=== PATIENT | male | born 1990 | race Caucasian/White ===

== ENCOUNTER 2018-11-17 15:54 | Emergency (ER) | payer OTHER ==
[2018-11-17 16:01] VITALS: RESP 16
[2018-11-17] MEDS ORDERED: SODIUM CHLORIDE 0.9% 1,000 ML IV STA (16:32)
--- NOTE | 2018-11-17 16:36 | ED ---
General Adult HPI - General Chief complaint: Overdose Stated complaint: Overdose Time Seen by Provider: 11/17/18 16:01 Source: patient Mode of arrival: EMS Limitations: no limitations - History of Present Illness Initial comments: Patient is a 28-year-old male presenting for overdose. The patient states that earlier today, he used methamphetamine as well as her wound. He does not remember the circumstances but thinks that it happened around 2 PM while he was at his girlfriend's house. He was fairly unarousable and they called police because of this. They state that he was given several rounds of Narcan in his nose and then he came back to it. He denies any chest pain, shortness breath, nausea/vomiting/diarrhea currently. - Related Data Home Medications Medication Instructions Recorded Confirmed No Known Home Medications 11/17/18 11/17/18 Allergies Allergy/AdvReac Type Severity Reaction Status Date / Time HONEY MUSTARD Allergy Unknown Uncoded 11/17/18 16:25 Review of Systems ROS Statement: Those systems with pertinent positive or pertinent negative responses have been documented in the HPI. Constitutional: Negative for chills, fatigue and fever. HENT: Negative for congestion. Respiratory: Negative for chest tightness, shortness of breath and wheezing. Negative for cough Cardiovascular: Negative for chest pain and palpitations. Gastrointestinal: Negative for abdominal pain. Negative for abdominal distention , diarrhea, nausea and vomiting. Genitourinary: Negative for dysuria. Musculoskeletal: Negative for back pain, neck pain and neck stiffness. Skin: Negative for color change. Neurological: Negative for dizziness, speech difficulty, weakness and light- headedness. Positive for decreased arousal Psychiatric/Behavioral: Negative for agitation and confusion. Negative for anxiety ROS Other: All systems not noted in ROS Statement are negative. Past Medical History Past Medical History: No Reported History History of Any Multi-Drug Resistant Organisms: None Reported Past Surgical History: No Surgical Hx Reported Past Psychological History: No Psychological Hx Reported Smoking Status: Current every day smoker Past Alcohol Use History: None Reported Past Drug Use History: Heroin General Exam - General Exam Comments Initial Comments: Constitutional: Pt is oriented to person, place, and time. Pt appears well- developed and well-nourished. No distress. HENT: Head: Normocephalic and atraumatic. Eyes: EOM are normal. Neck: Normal range of motion. Neck supple. Cardiovascular: Normal rate, regular rhythm, S1 normal, S2 normal and normal heart sounds. Exam reveals no gallop and no friction rub. No murmur heard. Pulmonary/Chest: Effort normal and breath sounds normal. No tachypnea and no bradypnea. No respiratory distress. No wheezes or rales noted. Abdominal: Soft. Bowel sounds are normal. Pt exhibits no shifting dullness, no distension, no pulsatile liver, no fluid wave, no abdominal bruit and no ascites. There is no tenderness. There is no rigidity, no rebound, no guarding, no tenderness at McBurney's point and negative Schofield's sign. Musculoskeletal: Normal range of motion. Neurological: Pt is alert and oriented to person, place, and time. No cranial nerve deficit. Skin: Skin is warm and dry. No rash noted. Pt is not diaphoretic. No erythema. No pallor. Psychiatric: Pt has a normal mood and affect. Pt behavior is normal. Thought content normal. Limitations: no limitations Course Vital Signs 11/17/18 11/17/18 15:59 19:18 Temperature 97.5 F L 97.8 F Pulse Rate 93 78 Respiratory 16 16 Rate Blood Pressure 131/87 138/70 O2 Sat by Pulse 100 98 Oximetry EKG Findings - EKG Comments: EKG Findings:: EKG shows normal sinus rhythm with a rate of 76 bpm, MN interval 150, QRS 106, QTC 463. Medical Decision Making - Medical Decision Making Laboratory studies showed that there was no significant Y derangements nor was her EKG abnormalities. There are no other toxicologic abnormalities and therefore was thought that the patient could be safely discharged. Explained all labs and diagnostic test results and that we will discharge the patient home and patient is to follow up with PCP in 1-2 days and return to the ED if symptoms worsen. Pt is agreeable to plan. - Lab Data Result diagrams: 11/17/18 16:55 11/17/18 16:55 Lab Results 11/17/18 11/17/18 Range/Units 16:55 16:55 WBC 5.8 (3.8-10.6) k/uL RBC 5.44 (4.30-5.90) m/uL Hgb 16.3 (13.0-17.5) gm/dL Hct 47.2 (39.0-53.0) % MCV 86.7 (80.0-100.0) fL MCH 30.0 (25.0-35.0) pg MCHC 34.6 (31.0-37.0) g/dL RDW 12.3 (11.5-15.5) % Plt Count 115 L (150-450) k/uL Neutrophils % 58 % Lymphocytes % 29 % Monocytes % 8 % Eosinophils % 3 % Basophils % 1 % Neutrophils # 3.3 (1.3-7.7) k/uL Lymphocytes # 1.7 (1.0-4.8) k/uL Monocytes # 0.4 (0-1.0) k/uL Eosinophils # 0.2 (0-0.7) k/uL Basophils # 0.0 (0-0.2) k/uL Sodium 140 (137-145) mmol/L Potassium 4.4 (3.5-5.1) mmol/L Chloride 102 (98-107) mmol/L Carbon Dioxide 30 (22-30) mmol/L Anion Gap 8 mmol/L BUN 14 (9-20) mg/dL Creatinine 0.97 (0.66-1.25) mg/dL Est GFR (CKD-EPI)AfAm >90 (>60 ml/min/1.73 sqM) Est GFR (CKD-EPI)NonAf >90 (>60 ml/min/1.73 sqM) Glucose 117 H (74-99) mg/dL Calcium 8.9 (8.4-10.2) mg/dL Total Bilirubin 0.6 (0.2-1.3) mg/dL AST 67 H (17-59) U/L ALT 133 H (21-72) U/L Alkaline Phosphatase 47 (38-126) U/L Total Protein 7.3 (6.3-8.2) g/dL Albumin 4.5 (3.5-5.0) g/dL Salicylates <1.0 mg/dL Acetaminophen <10.0 ug/mL Serum Alcohol <10 mg/dL Disposition Clinical Impression: Accidental overdose of heroin Disposition: HOME SELF-CARE Condition: Good Is patient prescribed a controlled substance at d/c from ED?: No Referrals: None,Stated [Primary Care Provider] - 1-2 days Time of Disposition: 18:56
[2018-11-17 17:22] LABS: Basophils % (A) 1 %; Eosinophils # (A) 0.2 k/uL (0-0.7); Eosinophils % (A) 3 %; HCT 47.2 % (39.0-53.0); HGB 16.3 gm/dL (13.0-17.5); Lymphocytes # (A) 1.7 k/uL (1.0-4.8); Lymphocytes % (A) 29 %; MCHC 34.6 g/dL (31.0-37.0); MCV 86.7 fL (80.0-100.0); Mean Platelet Volume 8.4; Monocytes # (A) 0.4 k/uL (0-1.0); Monocytes % (A) 8 %; Neutrophils # (A) 3.3 k/uL (1.3-7.7); Neutrophils % (A) 58 %; Platelet Count 115 k/uL (150-450); RBC 5.44 m/uL (4.30-5.90); RDW 12.3 % (11.5-15.5); WBC 5.8 k/uL (3.8-10.6)
[2018-11-17 17:34] LABS: ALT 133 U/L (21-72); AST 67 U/L (17-59); Acetaminophen <10.0 ug/mL; Albumin 4.5 g/dL (3.5-5.0); Alcohol <10 mg/dL; Alkaline Phosphatase 47 U/L (38-126); Anion Gap 8 mmol/L; Blood Urea Nitrogen 14 mg/dL (9-20); Calcium 8.9 mg/dL (8.4-10.2); Carbon Dioxide 30 mmol/L (22-30); Chloride 102 mmol/L (98-107); Glucose 117 mg/dL (74-99); Potassium 4.4 mmol/L (3.5-5.1); Salicylate <1.0 mg/dL; Sodium 140 mmol/L (137-145); Total Bilirubin 0.6 mg/dL (0.2-1.3); Total Protein 7.3 g/dL (6.3-8.2)
[2018-11-17 19:19] VITALS: BP 138/70; PULSE 78; TEMP 97.8
== END 2018-11-17 19:18 | disposition home or self-care (01) ==
LOC: EC 15:54
DX: T40.1X1A Poisoning by heroin, accidental (unintentional), initial encounter (principal); F17.200 Nicotine dependence, unspecified, uncomplicated; Z91.018 Allergy to other foods
CPT/HCPCS: 36415; 93005; 80053; 85025; 83520 ×2; 99284; 96360; 96361; G0480; 80320

== ENCOUNTER 2018-12-02 00:16 | Emergency (ER) | payer OTHER ==
[2018-12-02 00:23] VITALS: TEMP 98.3
--- NOTE | 2018-12-02 00:25 | ED ---
General Adult HPI - General Chief complaint: Overdose Stated complaint: overdose Source: patient, EMS Mode of arrival: wheelchair Limitations: no limitations - Related Data Home Medications Medication Instructions Recorded Confirmed No Known Home Medications 11/17/18 11/17/18 Allergies Allergy/AdvReac Type Severity Reaction Status Date / Time HONEY MUSTARD Allergy Unknown Uncoded 11/17/18 16:25 Review of Systems ROS Statement: Those systems with pertinent positive or pertinent negative responses have been documented in the HPI. ROS Other: All systems not noted in ROS Statement are negative. Past Medical History Past Medical History: No Reported History Additional Past Medical History / Comment(s): HEPATITIS C History of Any Multi-Drug Resistant Organisms: None Reported Past Surgical History: No Surgical Hx Reported Past Psychological History: No Psychological Hx Reported Smoking Status: Current every day smoker Past Alcohol Use History: None Reported Past Drug Use History: Heroin General Exam Limitations: no limitations Course Vital Signs 12/02/18 12/02/18 12/02/18 00:18 00:19 00:20 Temperature 98.3 F Pulse Rate 125 H 130 H Respiratory 16 Rate Blood Pressure 110/65 110/65 O2 Sat by Pulse 95 97 Oximetry 12/02/18 12/02/18 12/02/18 00:40 01:00 01:10 Temperature Pulse Rate 118 H 114 H 114 H Respiratory 17 Rate Blood Pressure 114/72 114/72 107/80 O2 Sat by Pulse 100 100 Oximetry 12/02/18 12/02/18 01:30 01:40 Temperature Pulse Rate 104 H 107 H Respiratory Rate Blood Pressure 107/80 112/80 O2 Sat by Pulse Oximetry Medical Decision Making - Medical Decision Making Dictation was produced using [employer] dictation software. please excuse any grammatical, word or spelling errors. Chief Complaint:-year-old male presents after drug use. History of Present Illness: he is 28-year-old male brought in by EMS. EMS was called by patient's significant other for possible drug use. Patient states that earlier today he sniffed opiates.. Patient denies any complaints at this time. His girlfriend hemoglobin grocery store saw him pain on the stairs. Patient has history of illicit drug abuse. Patient does also use drugs. EMS reports that he was maintaining his own airway. No Narcan was given. The ROS documented in this emergency department record has been reviewed and confirmed by me. Those systems with pertinent positive or negative responses have been documented in the HPI. All other systems are other negative and/or noncontributory. PHYSICAL EXAM: General Impression: Alert and oriented x3, not in acute distress HEENT: Normocephalic atraumatic, extra-ocular movements intact, pupils equal and reactive to light bilaterally, mucous membranes moist. Cardiovascular: Heart regular rate and rhythm, S1&S2 audible, no murmurs, rubs or gallops Chest: Lungs clear to auscultation bilaterally, no rhonchi, no wheeze, no rales Abdomen: Bowel sounds present, abdomen soft, non-tender, non-distended, no organomegaly Musculoskeletal: Pulses present and equal in all extremities, no peripheral edema Motor: Power 5/5 bilaterally, no focal deficits noted Neurological: CN II-XII grossly intact, no focal motor or sensory deficits noted Skin: Intact with no visualized rashes, positive skin tracts extremities Psych: Normal affect and mood ED course: 28-year-old male presents after opiate overdose. Vital signs upon arrival shows heart rate of 125, rest of vital signs within acceptable limits. Patient is in no acute distress. Patient not having any signs of respiratory failure. Patient is alert and oriented 4. Patient observed in emergency department for several hours with no acute issues. Patient ambulatory and tolerating by mouth without complications. Repeat vital signs are obtained and found to be within acceptable limits. Patient clear for discharge. Disposition Clinical Impression: Drug overdose Disposition: HOME SELF-CARE Condition: Good Instructions: Safe Use of Narcotics (ED) Is patient prescribed a controlled substance at d/c from ED?: No Referrals: None,Stated [Primary Care Provider] - 1-2 days Russell Mccloud MD [REFERRING] - 1-2 days Time of Disposition: 01:47
[2018-12-02 01:45] VITALS: BP 112/80
[2018-12-02 01:52] VITALS: PULSE 98; RESP 19
== END 2018-12-02 01:53 | disposition home or self-care (01) ==
LOC: EC 00:16
DX: T40.601A Poisoning by unspecified narcotics, accidental (unintentional), initial encounter (principal); F17.200 Nicotine dependence, unspecified, uncomplicated; Z91.018 Allergy to other foods
CPT/HCPCS: 99284

== ENCOUNTER 2024-02-13 09:58 | Inpatient (IN) | payer OTHER ==
--- NOTE | 2024-02-13 10:34 | ED ---
SOB HPI - General Chief Complaint: Shortness of Breath Stated Complaint: ERICK,R shoulder pain Time Seen by Provider: 02/13/24 10:09 Source: patient, RN notes reviewed Mode of arrival: ambulatory Limitations: no limitations - History of Present Illness Initial Comments: This is a 33-year-old male who presents to the emergency department for coughing, congestion, and shortness of breath. Symptoms started about a week ago. He went to urgent care over the weekend and was diagnosed with bronchitis. He was started on prednisone and azithromycin. He has since finished the azithromycin and has 1 day left of the steroid. However, he has not gotten any better. Reports a significant amount of sputum production. He is also having pain in the right side of his chest, neck, and middle of his back, especially when he tries to take a deep breath. Denies any sick contacts. States that he feels very weak and fatigued. Denies any history of asthma. MD Complaint: shortness of breath, cough - Related Data Home Medications Medication Instructions Recorded Confirmed Buprenorphine/Naloxone 8Mg/2Mg 0.0625 film SL DAILY 02/13/24 02/13/24 [Suboxone 8-2Mg Film] Ibuprofen [Motrin] 600 mg PO Q8HR PRN 02/13/24 02/13/24 methylPREDNISolone Dose Pack See Taper PO DIRECTED 02/13/24 02/13/24 [Medrol Dose Pack] Allergies Allergy/AdvReac Type Severity Reaction Status Date / Time HONEY MUSTARD Allergy Swelling Uncoded 02/13/24 11:27 Review of Systems ROS Statement: Those systems with pertinent positive or pertinent negative responses have been documented in the HPI. ROS Other: All systems not noted in ROS Statement are negative. Past Medical History Past Medical History: No Reported History Additional Past Medical History / Comment(s): HEPATITIS C History of Any Multi-Drug Resistant Organisms: None Reported Past Surgical History: No Surgical Hx Reported Past Psychological History: No Psychological Hx Reported Past Alcohol Use History: None Reported Past Drug Use History: Heroin General Exam Limitations: no limitations General appearance: alert, in no apparent distress Head exam: Present: atraumatic, normocephalic, normal inspection Respiratory exam: Present: normal lung sounds bilaterally. Absent: respiratory distress, wheezes, rales, rhonchi, stridor Cardiovascular Exam: Present: regular rate, normal rhythm, normal heart sounds. Absent: systolic murmur, diastolic murmur, rubs, gallop, clicks Neurological exam: Present: alert, oriented X3, CN II-XII intact Psychiatric exam: Present: normal affect, normal mood Skin exam: Present: warm, dry, intact, normal color. Absent: rash Course Vital Signs 02/13/24 02/13/24 02/13/24 10:03 10:15 13:13 Temperature 98.8 F Pulse Rate 108 H 102 H 75 Respiratory 26 H 22 Rate Blood Pressure 113/73 135/79 O2 Sat by Pulse 98 94 L Oximetry 02/13/24 02/13/24 02/13/24 13:21 13:28 15:58 Temperature Pulse Rate 79 79 90 Respiratory 22 22 Rate Blood Pressure 126/75 116/77 O2 Sat by Pulse 94 L 98 Oximetry 02/13/24 18:09 Temperature 99.2 F Pulse Rate 70 Respiratory 20 Rate Blood Pressure 110/56 O2 Sat by Pulse 96 Oximetry Medical Decision Making - Medical Decision Making This is a 33 year old male who presents to the emergency department for coughing and shortness of breath. Was pt. sent in by a medical professional or institution? @ -No Did you speak to anyone other than the patient for history? @ -No Did you review nursing and triage notes? @ -Yes, and I agree, it is accurate with regards to the patient's symptoms. Were old charts reviewed? @ -No Differential Diagnosis? @ -Differential Dyspnea: Coronary syndrome, arrhythmia, tamponade, asthma, COPD, pulmonary embolism, pneumonia, pneumothorax, pulmonary effusion, anaphylaxis, diabetic ketoacidosis, flailed chest, pulmonary contusion, diaphragmatic rupture, anemia, neuromuscular, this is not meant to be an all-inclusive list. EKG interpreted by me (3pts min.)? @ -EKG interpreted by me demonstrating the following: Sinus rhythm. Ventricular rate 90 bpm, [place] interval 154 ms, QRS duration 105 ms, QTc 389 ms. X-rays interpreted by me (1pt min.)? @ -Chest x-ray obtained. My interpretation identifies perihilar infiltrates. CT interpreted by me (1pt min.)? @ -CTA of the chest obtained. My interpretation identifies no evidence of a pulmonary embolus. U/S interpreted by me (1pt. min.)? @ -Not obtained What testing was considered but not performed? (CT, X-rays, U/S, labs)? Why? @ -None What meds were considered but not given? Why? @ -None Did you discuss the management of the patient with other professionals? @ -Yes, Dr. Key, who accepts the patient for admission. Did you reconcile home meds? @ -No Was smoking cessation discussed for >3mins.? @ -I discussed smoking cessation for greater than 3 minutes. The risk of smoking were discussed with the patient including but not limited to risks of cancer, stroke, coronary artery disease and COPD. Also discussed with patient were multiple methods of quitting smoking. Lastly we discussed the financial cost of smoking. Was critical care preformed (if so, how long)? @ -No Were there social determinants of health that impacted care today? How? (Homelessness, low income, unemployed, alcoholism, drug addiction, transportation, low edu. Level, literacy, decrease access to med. care, nursing home, rehab)? @ -No Was there de-escalation of care discussed even if they declined? (Discuss DNR or withdrawal of care, Hospice)? @ -No What co-morbidities impacted this encounter? (DM, HTN, Smoking, COPD, CAD, Cancer, CVA, Hep., AIDS, mental health diagnosis, sleep apnea, morbid obesity)? @ -Smoking Was patient admitted / discharged? @ -Admitted. Lab work demonstrates leukocytosis with a white blood cell count of 13.2. D-dimer elevated at 0.94 and CRP elevated at 14.1. Patient positive for influenza B. Chest x-ray demonstrates patchy perihilar infiltrates. Given the elevated D-dimer and patient's symptoms, CTA of the chest was obtained. No evidence of a pulmonary embolus was identified. However, he did have masslike areas of consolidation bilaterally, some of which demonstrate central lucency. They advised correlation for septic emboli, pulmonary abscess, and/or necrotic pneumonia. Findings reviewed with the patient. He was initially going to leave [facility], as he does not have any health insurance. He was later agreeable to admission. Patient started on pneumonia protocol with ceftriaxone and azit hromycin as well as Tamiflu for influenza B. Blood and sputum cultures obtained. Consult placed for pulmonology. Consult placed for social work as well due to patient needing help with finding health insurance. Undiagnosed new problem with uncertain prognosis? @ -None Drug Therapy requiring intensive monitoring for toxicity (Heparin, Nitro, Insulin, Cardizem)? @ -None Were any procedures done? @ -None Diagnosis/symptom? @ -Pneumonia, influenza B Acute, or Chronic, or Acute on Chronic? @ -Acute Uncomplicated (without systemic symptoms) or Complicated (systemic symptoms)? @ -Complicated Side effects of treatment? @ -None Exacerbation, Progression, or Severe Exacerbation] @ -Not applicable Poses a threat to life or bodily function? @ -Yes This case was discussed in detail with the attending ED physician, Dr. Torres. Presentation, findings, and treatment plan discussed in detail as well. - Lab Data Result diagrams: 02/13/24 10:46 02/13/24 10:46 Lab Results 02/13/24 02/13/24 02/13/24 Range/Units 10:46 10:46 10:46 WBC 13.2 H (3.8-10.6) k/uL RBC 4.98 (4.30-5.90) m/uL Hgb 14.5 (13.0-17.5) gm/dL Hct 42.4 (39.0-53.0) % MCV 85.3 (80.0-100.0) fL MCH 29.1 (25.0-35.0) pg MCHC 34.2 (31.0-37.0) g/dL RDW 12.0 (11.5-15.5) % Plt Count 193 (150-450) k/uL MPV 9.7 Neutrophils % 79 % Lymphocytes % 6 % Monocytes % 12 % Eosinophils % 0 % Basophils % 1 % Neutrophils # 10.5 H (1.3-7.7) k/uL Lymphocytes # 0.9 L (1.0-4.8) k/uL Monocytes # 1.5 H (0-1.0) k/uL Eosinophils # 0.0 (0-0.7) k/uL Basophils # 0.1 (0-0.2) k/uL PT 10.4 (10.0-12.5) sec INR 0.9 (<1.2) APTT 26.2 (22.0-30.0) sec D-Dimer 0.94 H (<0.60) mg/L FEU Sodium 131 L (137-145) mmol/L Potassium 4.0 (3.5-5.1) mmol/L Chloride 97 L (98-107) mmol/L Carbon Dioxide 26 (22-30) mmol/L Anion Gap 8 mmol/L BUN 8 L (9-20) mg/dL Creatinine 0.51 L (0.66-1.25) mg/dL Est GFR (CKD-EPI)AfAm >90 (>60 ml/min/1.73 sqM) Est GFR (CKD-EPI)NonAf >90 (>60 ml/min/1.73 sqM) Glucose 99 (74-99) mg/dL Plasma Lactic Acid Arnie (0.7-2.0) mmol/L Calcium 8.9 (8.4-10.2) mg/dL Total Bilirubin 0.6 (0.2-1.3) mg/dL AST 42 (17-59) U/L ALT 74 H (4-49) U/L Alkaline Phosphatase 72 (38-126) U/L Troponin I (0.000-0.034) ng/mL C-Reactive Protein (<1.0) mg/dL Total Protein 6.3 (6.3-8.2) g/dL Albumin 3.3 L (3.5-5.0) g/dL Procalcitonin (0.02-0.09) ng/mL Influenza Type A (PCR) (Not Detectd) Influenza Type B (PCR) (Not Detectd) RSV (PCR) (Not Detectd) SARS-CoV-2 (PCR) (Not Detectd) 02/13/24 02/13/24 02/13/24 Range/Units 10:46 10:46 10:46 WBC (3.8-10.6) k/uL RBC (4.30-5.90) m/uL Hgb (13.0-17.5) gm/dL Hct (39.0-53.0) % MCV (80.0-100.0) fL MCH (25.0-35.0) pg MCHC (31.0-37.0) g/dL RDW (11.5-15.5) % Plt Count (150-450) k/uL MPV Neutrophils % % Lymphocytes % % Monocytes % % Eosinophils % % Basophils % % Neutrophils # (1.3-7.7) k/uL Lymphocytes # (1.0-4.8) k/uL Monocytes # (0-1.0) k/uL Eosinophils # (0-0.7) k/uL Basophils # (0-0.2) k/uL PT (10.0-12.5) sec INR (<1.2) APTT (22.0-30.0) sec D-Dimer (<0.60) mg/L FEU Sodium (137-145) mmol/L Potassium (3.5-5.1) mmol/L Chloride (98-107) mmol/L Carbon Dioxide (22-30) mmol/L Anion Gap mmol/L BUN (9-20) mg/dL Creatinine (0.66-1.25) mg/dL Est GFR (CKD-EPI)AfAm (>60 ml/min/1.73 sqM) Est GFR (CKD-EPI)NonAf (>60 ml/min/1.73 sqM) Glucose (74-99) mg/dL Plasma Lactic Acid Arnie 1.1 (0.7-2.0) mmol/L Calcium (8.4-10.2) mg/dL Total Bilirubin (0.2-1.3) mg/dL AST (17-59) U/L ALT (4-49) U/L Alkaline Phosphatase (38-126) U/L Troponin I <0.012 (0.000-0.034) ng/mL C-Reactive Protein (<1.0) mg/dL Total Protein (6.3-8.2) g/dL Albumin (3.5-5.0) g/dL Procalcitonin (0.02-0.09) ng/mL Influenza Type A (PCR) Not Detected (Not Detectd) Influenza Type B (PCR) Detected A (Not Detectd) RSV (PCR) Not Detected (Not Detectd) SARS-CoV-2 (PCR) Not Detected (Not Detectd) 02/13/24 02/13/24 Range/Units 10:46 10:46 WBC (3.8-10.6) k/uL RBC (4.30-5.90) m/uL Hgb (13.0-17.5) gm/dL Hct (39.0-53.0) % MCV (80.0-100.0) fL MCH (25.0-35.0) pg MCHC (31.0-37.0) g/dL RDW (11.5-15.5) % Plt Count (150-450) k/uL MPV Neutrophils % % Lymphocytes % % Monocytes % % Eosinophils % % Basophils % % Neutrophils # (1.3-7.7) k/uL Lymphocytes # (1.0-4.8) k/uL Monocytes # (0-1.0) k/uL Eosinophils # (0-0.7) k/uL Basophils # (0-0.2) k/uL PT (10.0-12.5) sec INR (<1.2) APTT (22.0-30.0) sec D-Dimer (<0.60) mg/L FEU Sodium (137-145) mmol/L Potassium (3.5-5.1) mmol/L Chloride (98-107) mmol/L Carbon Dioxide (22-30) mmol/L Anion Gap mmol/L BUN (9-20) mg/dL Creatinine (0.66-1.25) mg/dL Est GFR (CKD-EPI)AfAm (>60 ml/min/1.73 sqM) Est GFR (CKD-EPI)NonAf (>60 ml/min/1.73 sqM) Glucose (74-99) mg/dL Plasma Lactic Acid Arnie (0.7-2.0) mmol/L Calcium (8.4-10.2) mg/dL Total Bilirubin (0.2-1.3) mg/dL AST (17-59) U/L ALT (4-49) U/L Alkaline Phosphatase (38-126) U/L Troponin I (0.000-0.034) ng/mL C-Reactive Protein 14.1 H (<1.0) mg/dL Total Protein (6.3-8.2) g/dL Albumin (3.5-5.0) g/dL Procalcitonin 0.28 H (0.02-0.09) ng/mL Influenza Type A (PCR) (Not Detectd) Influenza Type B (PCR) (Not Detectd) RSV (PCR) (Not Detectd) SARS-CoV-2 (PCR) (Not Detectd) - Radiology Data Radiology results: report reviewed, image reviewed Disposition Clinical Impression: Influenza B, Pneumonia, Nicotine dependence Disposition: ADMITTED IP TO THIS HOSP Is patient prescribed a controlled substance at d/c from ED?: No Time of Disposition: 13:32
[2024-02-13] MEDS: SODIUM CHLORIDE 0.9% 1,000 ML IV STA (10:44)
--- NOTE | 2024-02-13 11:05 | XR ---
EXAMINATION TYPE: XR chest 2V DATE OF EXAM: 02/13/2024 COMPARISON: NONE HISTORY: Chest pain TECHNIQUE: Frontal and lateral views of the chest are obtained. FINDINGS: Patchy perihilar infiltrates compatible with pneumonia. No evidence for pneumothorax. No pleural effusion. The cardiac silhouette size is within normal limits. The osseous structures are grossly intact. IMPRESSION: 1. Patchy perihilar infiltrates compatible with pneumonia.
[2024-02-13 11:09] LABS: INR 0.9 (<1.2); Partial Thromboplastin Time 26.2 sec (22.0-30.0); Prothrombin Time 10.4 sec (10.0-12.5)
[2024-02-13 11:11] LABS: ALT 74 U/L (4-49); AST 42 U/L (17-59); African American GFR (CKD) >90 (>60 ml/min/1.73 sqM); Albumin 3.3 g/dL (3.5-5.0); Alkaline Phosphatase 72 U/L (38-126); Anion Gap 8 mmol/L; Blood Urea Nitrogen 8 mg/dL (9-20); Calcium 8.9 mg/dL (8.4-10.2); Carbon Dioxide 26 mmol/L (22-30); Chloride 97 mmol/L (98-107); Glucose 99 mg/dL (74-99); Non-African American GFR(CKD) >90 (>60 ml/min/1.73 sqM); Sodium 131 mmol/L (137-145); Total Bilirubin 0.6 mg/dL (0.2-1.3); Total Protein 6.3 g/dL (6.3-8.2)
[2024-02-13 11:15] LABS: Basophils # (A) 0.1 k/uL (0-0.2); Basophils % (A) 1 %; Eosinophils % (A) 0 %; HCT 42.4 % (39.0-53.0); HGB 14.5 gm/dL (13.0-17.5); Lymphocytes # (A) 0.9 k/uL (1.0-4.8); Lymphocytes % (A) 6 %; MCH 29.1 pg (25.0-35.0); MCHC 34.2 g/dL (31.0-37.0); MCV 85.3 fL (80.0-100.0); Mean Platelet Volume 9.7; Monocytes # (A) 1.5 k/uL (0-1.0); Monocytes % (A) 12 %; Neutrophils # (A) 10.5 k/uL (1.3-7.7); Neutrophils % (A) 79 %; Platelet Count 193 k/uL (150-450); RBC 4.98 m/uL (4.30-5.90); WBC 13.2 k/uL (3.8-10.6)
[2024-02-13] MEDS: BENZONATATE 100 MG CAP PO STA (11:27)
--- NOTE | 2024-02-13 12:55 | CT ---
EXAMINATION TYPE: CT chest angio for PE DATE OF EXAM: 02/13/2024 COMPARISON: None HISTORY: ERICK, elevated d-dimer CT DLP: 334.7 mGycm CONTRAST: CT chest with contrast and 3D reconstruction with MIP imaging is performed with IV Contrast, patient injected with 100 mL of Isovue 370. Contrast-enhanced CT of the chest was performed through the course of the pulmonary arteries with shawna g and mediastinal window settings submitted. 3D reconstruction with MIP imaging was also performed. PULMONARY ARTERIES: The pulmonary arteries and their major tributaries are patent. I do not see ana dence for sizable filling defect to suggest pulmonary embolic process. LUNGS: There are masslike areas of consolidation bilaterally some of which demonstrate central lucenc y. Correlate for septic emboli, pulmonary abscesses and/or necrotic pneumonia. MEDIASTINUM: Thoracic aorta is of normal caliber. Subcarinal adenopathy measuring 1.7 cm. the heart is not enlarged. No evidence for mediastinal mass HILAR STRUCTURES: No evidence for mass. Prominent perihilar peribronchial lymph nodes bilaterally. UPPER ABDOMEN: No significant abnormality is seen. IMPRESSION: 1. No evidence for Pulmonary embolism at this time. 2.There are masslike areas of consolidation bilaterally some of which demonstrate central lucency. Co rrelate for septic emboli, pulmonary abscesses and/or necrotic pneumonia.
[2024-02-13] MEDS: IPRATROPIUM-ALBUTEROL 3 ML NEB INHALATION STA (13:08)
[2024-02-13] MEDS: guaiFENesin-DM 100-10MG/5ML 10 ML CUP PO STA (13:26)
[2024-02-13] MEDS ORDERED: PNEUMONIA PROTOCOL UTILIZED 1 EACH MISC PO PRN (13:42)
[2024-02-13] MEDS ORDERED: MORPHINE SULFATE 4 MG/ML SYRINGE IV PRN (14:12)
[2024-02-13] MEDS ORDERED: ONDANSETRON 4 MG/2 ML VIAL IVP PRN (14:12)
[2024-02-13] MEDS ORDERED: NALOXONE 0.4 MG/ML 1 ML VIAL IV PRN (14:12)
[2024-02-13] MEDS: SODIUM CHLORIDE 0.9% 1,000 ML IV SCH (14:52)
[2024-02-13] MEDS ORDERED: IBUPROFEN 600 MG TAB PO PRN (15:19)
[2024-02-13] MEDS: guaiFENesin-Coden 100-10MG/5ML 10 ML CUP PO STA (15:25)
[2024-02-13] MEDS: AZITHROMYCIN 500 MG in SODIUM CHLORIDE 0.9% 250 ML IVPB STA (15:54)
[2024-02-13] MEDS: OSELTAMIVIR 75 MG CAP PO SCH (16:07)
--- NOTE | 2024-02-13 20:56 | HP ---
HISTORY AND PHYSICAL CHIEF COMPLAINT: Cough, congestion, fever and chills. HISTORY OF PRESENT ILLNESS: This is a first known admission for this 33-year-old white male. He became ill with upper respiratory infection and cough. He went to Urgent Care, where he was given Z- Clemente and steroids. He got worse. Came to emergency room on the day [place] admission[place] [id number] and a chest x-ray demonstrated numerous, dense patches of pneumonitis bilaterally. He has not coughed up any blood. He has had no chest pain. REVIEW OF SYSTEMS: Otherwise unremarkable. Past medical history, family history, personal and social histories are unremarkable. He does take Suboxone. PHYSICAL EXAMINATION: VITAL SIGNS: Normal. CHEST: Demonstrates very poor breath sounds and expiratory wheezing and very productive cough of yellowish and brownish sputum. CARDIAC: Normal. ABDOMEN: Soft, nontender. EXTREMITIES: Normal. IMPRESSION: Bilateral bronchopneumonia. PLAN: 1. Bedrest. 2. IV fluids. 3. Nasal O2. 4. Updrafts. 5. Antibiotics. 6. Pulmonology consult. MMODL / IJN: [id number] /
[2024-02-13] MEDS: guaiFENesin-DM 600/30MG 1 EACH TAB.ER.12H PO SCH (21:33)
[2024-02-13] MEDS ORDERED: VANCOMYCIN IV PER PHARMACY 1 EACH MISC MISCELLANE PRN (22:25)
--- NOTE | 2024-02-13 22:44 | PN ---
PROGRESS NOTE DATE OF SERVICE: 02/13/2024 HISTORY OF PRESENT ILLNESS: This gentleman is quite short of breath and he is coughing up purulent sputum. White count [id number]. PHYSICAL EXAMINATION: CHEST: Breath sounds are poor with scattered rales, rhonchi, and decreased breath sounds. CARDIAC: Normal. IMPRESSION: Bilateral bronchopneumonia. PLAN: Continue with IV and normal steroids, antibiotics and updrafts. MMODL / IJN: [id number] /
[2024-02-13] MEDS: VANCOMYCIN 1,500 MG in SODIUM CHLORIDE 0.9% 500 ML 500 ML IVPB ONE (22:49)
--- NOTE | 2024-02-14 02:19 | P.CNPUL ---
History of Present Illness Consult date: 02/14/24 Requesting physician: Cally Briones Reason for consult: other (Pneumonia, influenza B) Chief complaint: Shortness of breath, cough, fever History of present illness: Patient is a 33-year-old white male with past medical history significant for IV drug abuse, previous MRSA infection, recent incarceration, hepatitis C. Patient was recently let out of custodial May,. 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 He was recently treated at [facility] in the emergency room January 06 for cellulitis of his left wrist. He had an I&D and was given a course of Keflex which he completed outpatient. He also has significant history of MRSA infections of his nose, which he developed in custodial. He has history of IV drug abuse, last using heroin approximately 4 years ago. He is on Suboxone. He presented to our emergency room yesterday morning complaining of 2 weeks of shortness of breath, coughing with purulent sputum, chest congestion, and fevers. Also admits some lateral "rib pain" that he attributes to coughing. Reproducible. He has some right-sided neck pain as well. He was treated at a local urgent care clinic over the weekend and apparently diagnosed with bronchitis. He was treated with a combination of azithromycin and prednisone, however, he did not get any better, so he came to the emergency room. On arrival, he was positive for influenza B. Chest x-ray showed patchy perihilar infiltrates with pulmonary multiple nodules. A follow-up chest CTA was done which did not show any pulmonary embolism. It did show multiple nodular and masslike opacities with areas of cavitation. These are suspicious for septic emboli, pulmonary abscess, and/or necrotic pneumonia. Given the patient's past history we will have to rule out endocarditis. Blood cultures are pending. Echocardiogram pending. Will add vancomycin to the patient's empiric coverage. Patient was also started on Tamiflu 5-day course twice daily. CBC done on arrival: WBC count of 13.2, hemoglobin 14.5, hematocrit 42.4, platelets 193. Procalcitonin elevated at 0.28. BMP on arrival: Sodium 131, potassium 4, chloride 97, serum bicarb 26, BUN 8, creatinine 0.51, glucose 99. Lactic acid level 1.1. LFTs mildly elevated. Patient is currently sitting up at the edge of the bed. He is on room air. He does become mildly dyspneic with exertion. He has a congested cough and a copious amount of brown/bloody sputum in his bedside tray. Currently afebrile, however, did report a fever as high as 101 F at home. Overall, patient's vital signs are stable. Review of Systems REVIEW OF SYSTEMS: CONSTITUTIONAL: Denies any recent significant weight loss or weight gain. Admits generalized malaise and fatigue. EYES: Denies change in vision. EARS, NOSE, MOUTH, THROAT: Denies headaches, admits sore throat. CARDIOVASCULAR: Denies central or radiating chest pain, palpitations or syncopal episodes. RESPIRATORY: See HPI GASTROINTESTINAL: Denies change in appetite, abdominal pain, nausea and vomiting, or diarrhea GENITOURINARY: Denies hematuria, denies infections. MUSKULOSKELETAL: Denies pain, denies swelling. INTEGUMENTARY: States that he did have an area of redness with a pustule on his left wrist in December, treated at [facility] with I&D and Keflex NEUROLOGICAL: Denies recent memory loss, no recent seizure activity. PSYCHIATRIC: Denies anxiety, denies depression. HEMATOLOGIC/LYMPHATIC: Denies anemia, denies enlarged lymph node Past Medical History Past Medical History: No Reported History, Atrial Fibrillation Additional Past Medical History / Comment(s): HEPATITIS C History of Any Multi-Drug Resistant Organisms: MRSA Date of last positivie culture/infection: 2021 MDRO Source:: nose Past Surgical History: No Surgical Hx Reported Past Anesthesia/Blood Transfusion Reactions: No Reported Reaction Past Psychological History: No Psychological Hx Reported Smoking Status: Smoker, current status unknown Past Alcohol Use History: None Reported Past Drug Use History: Heroin Medications and Allergies Home Medications Medication Instructions Recorded Confirmed Type Buprenorphine/Naloxone 8Mg/2Mg 0.0625 film SL DAILY 02/13/24 02/13/24 History [Suboxone 8-2Mg Film] Ibuprofen [Motrin] 600 mg PO Q8HR PRN 02/13/24 02/13/24 History methylPREDNISolone Dose Pack See Taper PO DIRECTED 02/13/24 02/13/24 History [Medrol Dose Pack] Allergies Allergy/AdvReac Type Severity Reaction Status Date / Time HONEY MUSTARD Allergy Swelling Uncoded 02/13/24 11:27 Physical Exam Vitals: Vital Signs Temp Pulse Resp BP Pulse Ox 02/13/24 18:09 99.2 F 70 20 110/56 96 02/13/24 15:58 90 22 116/77 98 02/13/24 13:28 79 22 126/75 94 L 02/13/24 13:21 79 02/13/24 13:13 75 02/13/24 10:15 102 H 22 135/79 94 L 02/13/24 10:03 98.8 F 108 H 26 H 113/73 98 Intake and Output 02/13/24 02/13/24 02/14/24 14:59 22:59 06:59 Other: Weight 77.111 kg 77.111 kg GENERAL EXAM: Alert, 33-year-old white male, fatigued, in no apparent distress. HEAD: Normocephalic and atraumatic EYES: Normal reaction of pupils, equal size. NOSE: Clear with pink turbinates. THROAT: No erythema or exudates. NECK: No masses, no JVD. CHEST: No chest wall deformity. LUNGS: Equal air entry with scattered rhonchi. On room air. Mild exertional dyspnea. CVS: S1 and S2 normal with no audible murmur, regular rhythm. No extra heart sounds ABDOMEN: No hepatosplenomegaly, active bowel sounds, no guarding or rigidity. SPINE: No scoliosis or deformity SKIN: Circumscribed area of erythema of the left wrist, without any pustule or fluctuation. CENTRAL NERVOUS SYSTEM: No focal deficits, tone is normal in all 4 extremities. EXTREMITIES: There is no peripheral edema, clubbing, or cyanosis. Peripheral pulses are intact. Results - Laboratory Findings CBC and BMP: 02/13/24 10:46 02/13/24 10:46 PT/INR, D-dimer PT 10.4 sec (10.0-12.5) 02/13/24 10:46 INR 0.9 (<1.2) 02/13/24 10:46 D-Dimer 0.94 mg/L FEU (<0.60) H 02/13/24 10:46 Abnormal lab findings: Abnormal Labs 02/13/24 02/13/24 02/13/24 10:46 10:46 10:46 WBC 13.2 H Neutrophils # 10.5 H Lymphocytes # 0.9 L Monocytes # 1.5 H D-Dimer 0.94 H Sodium 131 L Chloride 97 L BUN 8 L Creatinine 0.51 L ALT 74 H C-Reactive Protein Albumin 3.3 L Procalcitonin Influenza Type B (PCR) 02/13/24 02/13/24 02/13/24 10:46 10:46 10:46 WBC Neutrophils # Lymphocytes # Monocytes # D-Dimer Sodium Chloride BUN Creatinine ALT C-Reactive Protein 14.1 H Albumin Procalcitonin 0.28 H Influenza Type B (PCR) Detected A - Diagnostic Findings Chest x-ray: image reviewed CT scan - chest: image reviewed Assessment and Plan Assessment: Cavitating community-acquired pneumonia, rule out septic emboli and infective endocarditis. Chest CTA shows multiple nodular and masslike areas of consolidation bilaterally with central lucency. Correlate for septic emboli, pulmonary abscesses, and/or necrotic pneumonia. Acute Influenza B infection History of IV drug abuse, last using 4 years ago, on Suboxone Recent treatment for left wrist cellulitis, at outside facility 01/06/2024, received incision and drainage and course of Keflex which was completed outpatient History of MRSA skin/nose infection Recent history of incarceration History of hepatitis C Plan: Patient's medications, labs, imaging were reviewed Given the patient's history, will have to rule out endocarditis and septic emboli. Blood cultures and sputum culture are pending. Procalcitonin level 0.28. Transthoracic echocardiogram is pending, may follow-up with [facility] depending on the results. Vancomycin will have to be added patient's empiric antibiotics. 5-day course of Tamiflu twice daily was ordered Overall, patient appears hemodynamically stable at this time. We will continue to follow, and additional recommendations are forthcoming. I have personally seen and examined the patient, performed the documentation and the assessment and plan as written. Number of minutes spent on the visit:20 Time with Patient: Greater than 30
[2024-02-14] MEDS: VANCOMYCIN 1,500 MG in SODIUM CHLORIDE 0.9% 500 ML 500 ML IVPB SCH (06:03)
[2024-02-14] MEDS: PANTOPRAZOLE 40 MG/10 ML VIAL IV SCH (07:46)
[2024-02-14] MEDS: NON FORMULARY DRUG (Buprenorphine/Naloxone 8mg/2mg 1 EACH Film) SUBLINGUAL SCH (07:49)
[2024-02-14] MEDS: AZITHROMYCIN 500 MG TAB PO SCH (11:10)
--- NOTE | 2024-02-14 12:26 | CA ---
Transthoracic Echo Report Name: Abran Choi Age: 33 Gender: M : 1990 Exam Date: 02/14/2024 07:58 Exam Location: [facility] Ht (in): 74 Wt (lb): 170 Ordering Physician: Eric Martinez Attending/Referring Phys: Ad Copy Writer Myrna Fletcher RCS Procedure CPT: Indications: evaluate for endocarditis Cardiac Hx: Technical Quality: Good Contrast 1: Total Dose (mL): Contrast 2: Total Dose (mL): MEASUREMENTS (Male / Female) Normal Values 2D ECHO LV Diastolic Diameter PLAX 5.4 cm 4.2 - 5.9 / 3.9 - 5.3 cm LV Systolic Diameter PLAX 3.7 cm IVS Diastolic Thickness 0.6 cm 0.6 - 1.0 / 0.6 - 0.9 cm LVPW Diastolic Thickness 0.9 cm 0.6 - 1.0 / 0.6 - 0.9 cm LV Relative Wall Thickness 0.3 RV Internal Dim ED PLAX 2.9 cm LVOT Diameter 2.4 cm LV Diastolic Volume MOD BP 187.0 cm??? 67 - 155 / 56 - 104 cm??? LV Systolic Volume MOD BP 65.7 cm??? 22 - 58 / 19 - 49 cm??? LV Ejection Fraction MOD BP 64.9 % >= 55 % LV Cardiac Index MOD BP 4305.6 cm???/min???m??? LV Diastolic Volume MOD 4C 187.1 cm??? LV Systolic Volume MOD 4C 72.9 cm??? LV Ejection Fraction MOD 4C 61.1 % LV Cardiac Index MOD 4C 4052.6 cm???/min???m??? LV Diastolic Length 4C 10.3 cm LV Systolic Length 4C 8.5 cm LV Diastolic Volume MOD 2C 177.9 cm??? LV Systolic Volume MOD 2C 59.4 cm??? LV Ejection Fraction MOD 2C 66.6 % LV Cardiac Index MOD 2C 4203.1 cm???/min???m??? LV Diastolic Length 2C 9.8 cm LV Systolic Length 2C 8.6 cm LA Volume 45.3 cm??? 18 - 58 / 22 - 52 cm??? LA Volume Index 22.6 cm???/m??? 16 - 28 cm???/m??? Ascending Aorta Diameter 2.7 cm DOPPLER AV Peak Velocity 151.3 cm/s AV Peak Gradient 9.2 mmHg AV Mean Velocity 100.1 cm/s AV Mean Gradient 4.6 mmHg AV Velocity Time Integral 27.5 cm LVOT Peak Velocity 123.0 cm/s LVOT Peak Gradient 6.0 mmHg LVOT Velocity Time Integral 22.6 cm LVOT Stroke Volume 105.8 cm??? LVOT Stroke Volume Index 52.2 ml/m??? LVOT Cardiac Index 3752.9 cm???/min???m??? AV Area Cont Eq vti 3.8 cm??? AV Area Cont Eq pk 3.8 cm??? Mitral E Point Velocity 99.0 cm/s Mitral A Point Velocity 39.0 cm/s Mitral E to A Ratio 2.5 MV Deceleration Time 203.1 ms MV E' Velocity 12.8 cm/s Mitral E to MV E' Ratio 7.7 PV Peak Velocity 112.9 cm/s PV Peak Gradient 5.1 mmHg FINDINGS Left Ventricle Left ventricular ejection fraction is estimated at 60-65 %. Moderately increased left ventricular diastolic volume. Mildly increased left ventricular systolic volume. No obvious regional wall motion abnormalities. Left ventricular wall thickness normal. Right Ventricle Normal right ventricular size and function. Unable to estimate right ventricular systolic pressure. Right Atrium Normal right atrial size. Left Atrium Normal left atrial size. Mitral Valve Structurally normal mitral valve. No evidence for mitral valve prolapse. No mitral stenosis. No mitral regurgitation. Aortic Valve Trileaflet aortic valve. No aortic valve stenosis. Trace aortic regurgitation. Tricuspid Valve Structurally normal tricuspid valve. No tricuspid stenosis. Trace tricuspid regurgitation. Pulmonic Valve Structurally normal pulmonic valve. No pulmonic stenosis. Mild pulmonic regurgitation. Pericardium No pericardial effusion. Aorta Normal size aortic root and proximal ascending aorta. CONCLUSIONS Left ventricular EF 60-65% Moderately increased left ventricular wall thickness No mitral regurgitation Trace aortic regurgitation Trace tricuspid regurgitation Previewed by: Dr. Charlie To DO (Electronically Signed) Final Date: 14 February 2024 12:26
[2024-02-14] MEDS: IV FLUID CONTINUATION 900 ML IV ONE (13:33)
[2024-02-14] MEDS ORDERED: fentaNYL (PF) 50 MCG/ML 2 ML AMP ONE (13:38)
[2024-02-14] MEDS ORDERED: LIDOCAINE 1% INJ 10MG/ML (20 ML MDV) ONE (13:38)
[2024-02-14] MEDS ORDERED: PROPOFOL 10 MG/ML 20 ML VIAL IV ONE (13:38)
[2024-02-14] MEDS: LIDOCAINE 2% INJ 20 MG/ML INTRATRACH ONE (13:45)
--- NOTE | 2024-02-14 19:56 | PCN ---
PROCEDURE NOTE PROCEDURES PERFORMED: Bronchoscopy, airway examination, therapeutic lavage, BAL lingula and BAL right middle lobe. PREOPERATIVE DIAGNOSIS: Pneumonia. POSTOPERATIVE DIAGNOSIS: Pneumonia. FIRST REHAB MANAGER: Dr. Martha Turpin. DESCRIPTION OF PROCEDURE: The patient's procedure took place in [facility] room #1. There was informed consent and universal timeout. Anesthesia Team provided general anesthesia. Once the patient was adequately sedated and being fully monitored, the bronchoscope was inserted without difficulty through the right nostril. It passed through the right nasopharynx into the oropharynx. The hypopharynx was identified. There were some secretions noted in the hypopharynx. The structures for the most part appeared relatively normal including the anterior commissure, true cords, false cords, arytenoids, piriform sinuses, right and left, vallecula. Next, after topicalization, the bronchoscope was pushed through the glottic opening into the trachea. There were thick green mucoid secretions noted throughout the trachea. They were somewhat adherent to the trachea. They were difficult to suction. There was no dominant mass or tumor. Tracheal sean was sharp. The right and left mainstem were topicalized. There were thick adherent white and yellow/green secretions noted throughout the entire tracheobronchial tree. They were noted in the right upper lobe, right middle lobe, right lower lobe, left upper lobe proper, lingula, and left lower lobe. They were difficult to suction. They were very adherent. Next, the bronchoscope was wedged into the lingula. A formal BAL took place. Roughly 25 to 30 mL of fluid was recovered. It was somewhat bloody. On the right side, we did a formal BAL in the right middle lobe. Because the patient was flu positive, and because he was coughing frequently, we did not spend a lot of time trying to clear the airway of these secretions, which were difficult to suction anyway because of the adherence to the underlying mucosa, but rather, we did the sampling, and we exited the airway. The patient will be recovered. There was no immediate complication. The patient tolerated the procedure well and the fluid was sent for analysis. MMODL / IJN: [id number] /
[2024-02-14] MEDS: IBUPROFEN 400 MG TAB PO PRN (20:34)
[2024-02-14] MEDS: SENNOSIDES 8.6 MG TAB PO SCH (20:34)
[2024-02-14] MEDS: IPRATROPIUM-ALBUTEROL 3 ML NEB INHALATION SCH (21:35)
[2024-02-15] MEDS: VANCOMYCIN TROUGH DUE 1 EACH MISC MISCELLANE ONE (07:00)
[2024-02-15 07:36] LABS: African American GFR (CKD) >90 (>60 ml/min/1.73 sqM); Non-African American GFR(CKD) >90 (>60 ml/min/1.73 sqM)
[2024-02-15 09:07] LABS: Appearance,BF Bloody (Clear); RBC, Body Fluid 102500000 /UL (0-2000)
[2024-02-15 09:09] LABS: Appearance,BF Bloody (Clear); RBC, Body Fluid 138750000 /UL (0-2000)
[2024-02-15 10:17] LABS: Nucleated Cells, Body Fluid 315000 /UL
[2024-02-15 10:18] LABS: Nucleated Cells, Body Fluid 440000 /UL
--- NOTE | 2024-02-15 12:18 | CDI ---
Documentation Clarification Form Date: 02/15/2024 11:41:10 AM From: Angela Mcgrath RN, CCDS Phone: [phone] Admit Date: 02/13/2024 02:33:00 PM Patient Name: Abran Choi Visit Number: [id number] Discharge Date: ATTENTION: The Clinical Documentation Specialists (CDI) and [facility] Coding Staff appreciate your assistance in clarifying documentation. Please respond to the clarification below the line at the bottom and electronically sign. The CDI & [facility] Coding staff will review the response and follow-up if needed. Please note: Queries are made part of the Legal Health Record. If you have any questions, please contact the author of this message via ITS. Dr. Kole Key The patient has documentation of bilateral bronchopneumonia, WBC 13.2, dyspneic with exertion. He report a fever as high as 101 at home. Based on this information and the findings below, is there an additional diagnosis that is clinically appropriate for this patient? History/Risk Factors: Hepatitis C, Left wrist cellulitis 01/06/2024 with (I/D), IV drug abuse, last using 4 years age, on Suboxone, previous MRSA infection, Clinical Indicators: 33-year-old male present to ED complaining of 2 weeks of shortness of breath, coughing with purulent sputum, chest congestion, and fevers. Treated for bronchitis at a local urgent care clinic. 02/12 VS: 113/73 108 26 98.8 98% RA 02/12 Labs: WBC 13.2, Neutrophils 10.5 , Sodium 131, C-Reactive Protein 14.1, Procalcitonin 0.28, Lactic acid 1.1 Influenza Type B Detected 02/12 Blood cultures: Preliminary: Pending No growth after 24 hours Treatment: Rocephin 2 GM IVPB Q 24 HR Tamiflu 75 MG PO Q 12 HRS 02/12-5 (10 doses) Vancomycin 1,500 MG IVPB ONCE 4/3an then IVPB Q8 HRS 02/13-02/14 (PTD) Vancomycin 1,750 IVPB Q 8 HRS /5 .9NS @75 ML/ HR IV 02/12-02/13 Is there an additional diagnosis that is clinically appropriate for this patient? [ ] Sepsis, present on admission [ ] No additional diagnosis/not clinically significant [ ] Other, please specify [ ] Unable to determine SIRS Criteria: 2 or more of the following may indicate SIRS Temperature < 96.8F (36C) or > 101.0F (38.3C) Heart Rate > 90 bpm Respiratory Rate > 20 breaths/min or PaCO2 < 32 mmHg White Blood Cell Count > 12,000 or < 4,000 cells/mm3 or > 10% bands (Template Last Reviewed: November 2022) MTDD
--- NOTE | 2024-02-15 12:18 | P.PN ---
Subjective Progress Note Date: 02/15/24 Patient is a 33-year-old white male with past medical history significant for IV drug abuse, previous MRSA infection, recent incarceration, hepatitis C. Patient was recently let out of penitentiary May,. 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 He was recently treated at [facility] in the emergency room January 06 for cellulitis of his left wrist. He had an I&D and was given a course of Keflex which he completed outpatient. He also has significant history of MRSA infections of his nose, which he developed in penitentiary. He has history of IV drug abuse, last using heroin approximately 4 years ago. He is on Suboxone. He presented to our emergency room yesterday morning complaining of 2 weeks of shortness of breath, coughing with purulent sputum, chest congestion, and fevers. Also admits some lateral "rib pain" that he attributes to coughing. Reproducible. He has some right-sided neck pain as well. He was treated at a local urgent care clinic over the weekend and apparently diagnosed with bronchitis. He was treated with a combination of azithromycin and prednisone, however, he did not get any better, so he came to the emergency room. On arrival, he was positive for influenza B. Chest x-ray showed patchy perihilar infiltrates with pulmonary multiple nodules. A follow-up chest CTA was done which did not show any pulmonary embolism. It did show multiple nodular and masslike opacities with areas of cavitation. These are suspicious for septic emboli, pulmonary abscess, and/or necrotic pneumonia. Given the patient's past history we will have to rule out endocarditis. Blood cultures are pending. Echocardiogram pending. Will ad d vancomycin to the patient's empiric coverage. Patient was also started on Tamiflu 5-day course twice daily. CBC done on arrival: WBC count of 13.2, hemoglobin 14.5, hematocrit 42.4, platelets 193. Procalcitonin elevated at 0.28. BMP on arrival: Sodium 131, potassium 4, chloride 97, serum bicarb 26, BUN 8, creatinine 0.51, glucose 99. Lactic acid level 1.1. LFTs mildly elevated. Patient is currently sitting up at the edge of the bed. He is on room air. He does become mildly dyspneic with exertion. He has a congested cough and a copious amount of brown/bloody sputum in his bedside tray. Currently afebrile, however, did report a fever as high as 101 F at home. Overall, patient's vital signs are stable. The patient is seen today February 15, 2024 in follow-up regular medical floor. He is currently resting in bed. Awake and alert in no acute distress. Maintaining O2 saturations in the 90s on room air. He is feeling a bit better today compared to yesterday. He is still weak and with a soft voice. He did undergo bronchoscopy with BAL and there was significant amount of retained secretions some of which was adhered to the trachea wall. Cultures are pending. Echocardiogram revealed no evidence of vegetation on the heart valves. Creatinine 0.48. He is continued on ceftriaxone and vancomycin. Remains on Tamiflu for his influenza B infection. Normal saline at 75 MLS per hour. Objective - Vital Signs Vital signs: Vital Signs Temp 97.6 F 02/15/24 08:16 Pulse 64 02/15/24 08:16 Resp 18 02/15/24 08:16 BP 120/76 02/15/24 08:16 Pulse Ox 97 02/15/24 08:16 FiO2 Intake & Output 02/14/24 02/15/24 02/15/24 18:59 06:59 18:59 Intake Total 950 Balance 950 Intake: IV 200 Intake, IV Titration 750 Amount Sodium Chloride 0.9% 1, 750 000 ml @ 75 mls/hr IV . [id number] [facility] Rx#:[id number] Other: # Voids 2 - Exam GENERAL EXAM: Alert, pleasant 33-year-old male, on room air, comfortable in no apparent distress. HEAD: Normocephalic. EYES: Normal reaction of pupils, equal size. NOSE: Clear with pink turbinates. THROAT: No erythema or exudates. NECK: No masses, no JVD. CHEST: No chest wall deformity. LUNGS: Equal air entry with bilateral scattered rhonchi. CVS: S1 and S2 normal with no audible murmur, regular rhythm. ABDOMEN: No hepatosplenomegaly, normal bowel sounds, no guarding or rigidity. SPINE: No scoliosis or deformity SKIN: Erythema on the left wrist. CENTRAL NERVOUS SYSTEM: No focal deficits, tone is normal in all 4 extremities. EXTREMITIES: There is no peripheral edema. No clubbing, no cyanosis. Peripheral pulses are intact. - Labs CBC & Chem 7: 04/03/24 10:46 02/15/24 07:00 Labs: Abnormal Lab Results - Last 24 Hours (Table) 02/14/24 02/14/24 02/15/24 Range/Units 13:40 13:45 07:00 Creatinine 0.48 L (0.66-1.25) mg/dL Fluid Appearance Bloody A Bloody A (Clear) Fluid RBC [id number] H [id number] H (0-2000) /uL Microbiology - Last 24 Hours (Table) 02/13/24 14:30 Blood Culture - Preliminary Blood 02/13/24 14:45 Blood Culture - Preliminary Blood 02/13/24 22:40 Gram Stain - Preliminary Sputum Assessment and Plan Assessment: Cavitating community-acquired pneumonia, rule out septic emboli. Chest CTA shows multiple nodular and masslike areas of consolidation bilaterally with central lucency. Correlate for septic emboli, pulmonary abscesses, and/or necrotic pneumonia. Echocardiogram revealed no evidence of endocarditis. Bronchoscopy with BAL performed 02/14/2024. There was a significant amount of purulent secretions as well as secretions adhered to the tracheal wall, cultures pending. Acute Influenza B infection History of IV drug abuse, last using 4 years ago, on Suboxone Recent treatment for left wrist cellulitis, at outside facility 01/06/2024, received incision and drainage and course of Keflex which was completed outpatient History of MRSA skin/nose infection Recent history of incarceration History of hepatitis C Plan: The patient was seen and evaluated Echocardiogram, labs and medications reviewed No evidence of endocarditis, vegetation Bronchoscopy with BAL done 02/14/2024 Cultures are pending Continue vancomycin and ceftriaxone Continue Tamiflu Continue fluid resuscitation Stable and on room air We will continue to follow I have personally seen and examined the patient, performed the documentation and the assessment and plan as written. Number of minutes spent on the visit: 10.
[2024-02-15] MEDS: KETOROLAC 15 MG/ML 1 ML VIAL IVP PRN (12:59)
[2024-02-15] MEDS: VANCOMYCIN 1,750 MG in SODIUM CHLORIDE 0.9% 500 ML 500 ML IVPB SCH (16:35)
[2024-02-16 07:08] LABS: African American GFR (CKD) >90 (>60 ml/min/1.73 sqM); Non-African American GFR(CKD) >90 (>60 ml/min/1.73 sqM)
--- NOTE | 2024-02-16 12:28 | P.PN ---
Subjective Progress Note Date: 02/16/24 Patient is a 33-year-old white male with past medical history significant for IV drug abuse, previous MRSA infection, recent incarceration, hepatitis C. Patient was recently let out of senior care May,. 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 He was recently treated at [facility] in the emergency room January 06 for cellulitis of his left wrist. He had an I&D and was given a course of Keflex which he completed outpatient. He also has significant history of MRSA infections of his nose, which he developed in senior care. He has history of IV drug abuse, last using heroin approximately 4 years ago. He is on Suboxone. He presented to our emergency room yesterday morning complaining of 2 weeks of shortness of breath, coughing with purulent sputum, chest congestion, and fevers. Also admits some lateral "rib pain" that he attributes to coughing. Reproducible. He has some right-sided neck pain as well. He was treated at a local urgent care clinic over the weekend and apparently diagnosed with bronchitis. He was treated with a combination of azithromycin and prednisone, however, he did not get any better, so he came to the emergency room. On arrival, he was positive for influenza B. Chest x-ray showed patchy perihilar infiltrates with pulmonary multiple nodules. A follow-up chest CTA was done which did not show any pulmonary embolism. It did show multiple nodular and masslike opacities with areas of cavitation. These are suspicious for septic emboli, pulmonary abscess, and/or necrotic pneumonia. Given the patient's past history we will have to rule out endocarditis. Blood cultures are pending. Echocardiogram pending. Will ad d vancomycin to the patient's empiric coverage. Patient was also started on Tamiflu 5-day course twice daily. CBC done on arrival: WBC count of 13.2, hemoglobin 14.5, hematocrit 42.4, platelets 193. Procalcitonin elevated at 0.28. BMP on arrival: Sodium 131, potassium 4, chloride 97, serum bicarb 26, BUN 8, creatinine 0.51, glucose 99. Lactic acid level 1.1. LFTs mildly elevated. Patient is currently sitting up at the edge of the bed. He is on room air. He does become mildly dyspneic with exertion. He has a congested cough and a copious amount of brown/bloody sputum in his bedside tray. Currently afebrile, however, did report a fever as high as 101 F at home. Overall, patient's vital signs are stable. The patient is seen today February 15, 2024 in follow-up regular medical floor. He is currently resting in bed. Awake and alert in no acute distress. Maintaining O2 saturations in the 90s on room air. He is feeling a bit better today compared to yesterday. He is still weak and with a soft voice. He did undergo bronchoscopy with BAL and there was significant amount of retained secretions some of which was adhered to the trachea wall. Cultures are pending. Echocardiogram revealed no evidence of vegetation on the heart valves. Creatinine 0.48. He is continued on ceftriaxone and vancomycin. Remains on Tamiflu for his influenza B infection. Normal saline at 75 MLS per hour. The patient is seen today February 16, 2024 in follow-up on the regular medical floor. He is currently resting comfortably in bed. Awake and alert in no acute distress. Continues to maintain good O2 saturations in the 90s on room air. He has been afebrile. Hemodynamically stable. Sputum culture is showing presumptive Staph aureus. Nasal swab is showing MRSA. Bronchial wash cultures are pending. Blood cultures are pending. Creatinine 0.58. GFR greater than 90. He is continued on ceftriaxone, vancomycin. Remains on Tamiflu. Continued on bronchodilators and Mucinex. Normal saline at 75 MLS per hour. Objective - Vital Signs Vital signs: Vital Signs Temp 98.3 F 02/16/24 07:47 Pulse 98 02/16/24 08:43 Resp 18 02/16/24 07:47 BP 127/69 02/16/24 07:47 Pulse Ox 96 02/16/24 08:37 FiO2 Intake & Output 02/15/24 02/16/24 02/16/24 18:59 06:59 18:59 Other: Voiding Method Toilet Toilet # Voids 2 5 - Exam GENERAL EXAM: Alert, oriented 33-year-old male, sitting in bed, on room air, comfortable in no apparent distress. HEAD: Normocephalic. EYES: Normal reaction of pupils, equal size. NOSE: Clear with pink turbinates. THROAT: No erythema or exudates. NECK: No masses, no JVD. CHEST: No chest wall deformity. LUNGS: Equal air entry with bilateral scattered rhonchi. CVS: S1 and S2 normal with no audible murmur, regular rhythm. ABDOMEN: No hepatosplenomegaly, normal bowel sounds, no guarding or rigidity. SPINE: No scoliosis or deformity SKIN: Erythema on the left wrist. CENTRAL NERVOUS SYSTEM: No focal deficits, tone is normal in all 4 extremities. EXTREMITIES: There is no peripheral edema. No clubbing, no cyanosis. Pe ripheral pulses are intact. - Labs CBC & Chem 7: 02/13/24 10:46 02/16/24 05:57 Labs: Abnormal Lab Results - Last 24 Hours (Table) 02/16/24 Range/Units 05:57 Creatinine 0.58 L (0.66-1.25) mg/dL Microbiology - Last 24 Hours (Table) 02/14/24 13:45 Acid Fast Bacilli Smear - Preliminary Other - Other 02/14/24 13:40 Acid Fast Bacilli Smear - Preliminary Bronchoalviolar Lavage - Right 02/13/24 14:30 Blood Culture - Preliminary Blood 02/13/24 14:45 Blood Culture - Preliminary Blood 02/14/24 02:30 Nasal Screen MRSA/MSSA - Final Nasal Swab Methicillin resist S. aureus 02/14/24 13:40 Gram Stain - Preliminary Bronchoalviolar Lavage - Right 02/14/24 13:45 Gram Stain - Preliminary Bronchial Washings - Random 02/13/24 22:40 Gram Stain - Preliminary Sputum Sputum Culture - Preliminary Presumptive Staph aureus Assessment and Plan Assessment: Cavitating community-acquired pneumonia, rule out septic emboli. Chest CTA shows multiple nodular and masslike areas of consolidation bilaterally with central lucency. Correlate for septic emboli, pulmonary abscesses, and/or necrotic pneumonia. Echocardiogram revealed no evidence of endocarditis. Bronchoscopy with BAL performed 02/14/2024. There was a significant amount of purulent secretions as well as secretions adhered to the tracheal wall. Sputum culture showing presumptive MRSA. Nasal swab showing MRSA. Bronchial wash cultures are pending. Blood cultures are pending. He remains on vancomycin and ceftriaxone. Acute Influenza B infection remains on Tamiflu History of IV drug abuse, last using 4 years ago, on Suboxone Recent treatment for left wrist cellulitis, at outside facility 01/06/2024, received incision and drainage and course of Keflex which was completed outpatient History of MRSA skin/nose infection Recent history of incarceration History of hepatitis C Plan: The patient was seen and evaluated Microbiology, labs and medications reviewed Sputum culture showing presumptive MRSA Nasal swab showing MRSA Bronchial wash cultures are pending Continue vancomycin and ceftriaxone Continue Tamiflu Continue fluid resuscitation Stable and on room air We will continue to follow I have personally seen and examined the patient, performed the documentation and the assessment and plan as written. Number of minutes spent on the visit: 10.
[2024-02-16] MEDS: ZOLPIDEM 5 MG TAB PO STA (23:50)
[2024-02-17] MEDS: VANCOMYCIN TROUGH DUE 1 EACH MISC MISCELLANE ONE (06:31)
[2024-02-17 07:03] LABS: African American GFR (CKD) >90 (>60 ml/min/1.73 sqM); Non-African American GFR(CKD) >90 (>60 ml/min/1.73 sqM)
--- NOTE | 2024-02-17 07:54 | XR ---
EXAMINATION TYPE: XR chest 1V portable DATE OF EXAM: 02/17/2024 COMPARISON: NONE HISTORY: Chest pain TECHNIQUE: Single frontal view of the chest is obtained. FINDINGS: There are stable perihilar and basilar infiltrates. The cardiac silhouette size is within normal limits. The osseous structures are intact. IMPRESSION: 1. There are stable perihilar and basilar infiltrates.
--- NOTE | 2024-02-17 11:11 | P.PN ---
Subjective Progress Note Date: 02/17/24 Patient is a 33-year-old white male with past medical history significant for IV drug abuse, previous MRSA infection, recent incarceration, hepatitis C. Patient was recently let out of fdc May,. 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 He was recently treated at [facility] in the emergency room January 06 for cellulitis of his left wrist. He had an I&D and was given a course of Keflex which he completed outpatient. He also has significant history of MRSA infections of his nose, which he developed in [facility]dc. He has history of IV drug abuse, last using heroin approximately 4 years ago. He is on Suboxone. He presented to our emergency room yesterday morning complaining of 2 weeks of shortness of breath, coughing with purulent sputum, chest congestion, and fevers. Also admits some lateral "rib pain" that he attributes to coughing. Reproducible. He has some right-sided neck pain as well. He was treated at a local urgent care clinic over the weekend and apparently diagnosed with bronchitis. He was treated with a combination of azithromycin and prednisone, however, he did not get any better, so he came to the emergency room. On arrival, he was positive for influenza B. Chest x-ray showed patchy perihilar infiltrates with pulmonary multiple nodules. A follow-up chest CTA was done which did not show any pulmonary embolism. It did show multiple nodular and masslike opacities with areas of cavitation. These are suspicious for septic emboli, pulmonary abscess, and/or necrotic pneumonia. Given the patient's past history we will have to rule out endocarditis. Blood cultures are pending. Echocardiogram pending. Will ad d vancomycin to the patient's empiric coverage. Patient was also started on Tamiflu 5-day course twice daily. CBC done on arrival: WBC count of 13.2, hemoglobin 14.5, hematocrit 42.4, platelets 193. Procalcitonin elevated at 0.28. BMP on arrival: Sodium 131, potassium 4, chloride 97, serum bicarb 26, BUN 8, creatinine 0.51, glucose 99. Lactic acid level 1.1. LFTs mildly elevated. Patient is currently sitting up at the edge of the bed. He is on room air. He does become mildly dyspneic with exertion. He has a congested cough and a copious amount of brown/bloody sputum in his bedside tray. Currently afebrile, however, did report a fever as high as 101 F at home. Overall, patient's vital signs are stable. The patient is seen today February 15, 2024 in follow-up regular medical floor. He is currently resting in bed. Awake and alert in no acute distress. Maintaining O2 saturations in the 90s on room air. He is feeling a bit better today compared to yesterday. He is still weak and with a soft voice. He did undergo bronchoscopy with BAL and there was significant amount of retained secretions some of which was adhered to the trachea wall. Cultures are pending. Echocardiogram revealed no evidence of vegetation on the heart valves. Creatinine 0.48. He is continued on ceftriaxone and vancomycin. Remains on Tamiflu for his influenza B infection. Normal saline at 75 MLS per hour. The patient is seen today February 16, 2024 in follow-up on the regular medical floor. He is currently resting comfortably in bed. Awake and alert in no acute distress. Continues to maintain good O2 saturations in the 90s on room air. He has been afebrile. Hemodynamically stable. Sputum culture is showing presumptive Staph aureus. Nasal swab is showing MRSA. Bronchial wash cultures are pending. Blood cultures are pending. Creatinine 0.58. GFR greater than 90. He is continued on ceftriaxone, vancomycin. Remains on Tamiflu. Continued on bronchodilators and Mucinex. Normal saline at 75 MLS per hour. The patient is seen today February 17, 2024 in follow-up on the regular medical floor. He is awake and alert in no acute distress. Sitting up at the bedside. Denies any worsening shortness of breath, cough or congestion. His cough is less congested. Maintaining good O2 saturations in the 90s on room air. He has normal saline at 75 MLS per hour. Follow-up chest x-ray continues to show stable perihilar and basilar infiltrates. Bronchial wash cultures revealing MRSA and Macy albicans. Creatinine 0.55. GFR greater than 90. Vancomycin trough 15.2. He remains on bronchodilators and Mucinex. Continued on Tamiflu. Continued on vancomycin. Objective - Vital Signs Vital signs: Vital Signs Temp 98.7 F 02/17/24 07:30 Pulse 82 02/17/24 07:30 Resp 20 02/17/24 07:30 BP 145/77 02/17/24 07:30 Pulse Ox 97 02/17/24 07:30 FiO2 Intake & Output 02/16/24 02/17/24 02/17/24 18:59 06:59 18:59 Other: Voiding Method Toilet Toilet # Voids 4 4 - Exam GENERAL EXAM: Alert, pleasant 33-year-old male, on room air, comfortable in no apparent distress. HEAD: Normocephalic. EYES: Normal reaction of pupils, equal size. NOSE: Clear with pink turbinates. THROAT: No erythema or exudates. NECK: No masses, no JVD. CHEST: No chest wall deformity. LUNGS: Equal air entry with bilateral scattered rhonchi. CVS: S1 and S2 normal with no audible murmur, regular rhythm. ABDOMEN: No hepatosplenomegaly, normal bowel sounds, no guarding or rigidity. SPINE: No scoliosis or deformity SKIN: Erythema on the left wrist. CENTRAL NERVOUS SYSTEM: No focal deficits, tone is normal in all 4 extremities. EXTREMITIES: There is no peripheral edema. No clubbing, no cyanosis. Peripheral pulses are intact. - Labs CBC & Chem 7: 02/13/24 10:46 02/17/24 05:54 Labs: Abnormal Lab Results - Last 24 Hours (Table) 02/17/24 Range/Units 05:54 Creatinine 0.55 L (0.66-1.25) mg/dL Microbiology - Last 24 Hours (Table) 02/14/24 13:45 Gram Stain - Final Bronchial Washings - Random Bronchial Washings Culture - Final Methicillin resist S. aureus Macy albicans 02/14/24 13:40 Gram Stain - Final Bronchoalviolar Lavage - Right Bronchial Washings Culture - Final Methicillin resist S. aureus Macy albicans 02/13/24 14:30 Blood Culture - Preliminary Blood 02/13/24 14:45 Blood Culture - Preliminary Blood 02/13/24 22:40 Gram Stain - Final Sputum Sputum Culture - Final Methicillin resist S. aureus Assessment and Plan Assessment: Cavitating community-acquired pneumonia, rule out septic emboli. Chest CTA shows multiple nodular and masslike areas of consolidation bilaterally with central lucency. Correlate for septic emboli, pulmonary abscesses, and/or necrotic pneumonia. Echocardiogram revealed no evidence of endocarditis. Bronchoscopy with BAL performed 02/14/2024. There was a significant amount of purulent secretions as well as secretions adhered to the tracheal wall. Sputum culture showing presumptive MRSA. Nasal swab showing MRSA. Bronchial wash cultures revealed MRSA. Blood cultures are no growth. Cardiogram revealed no vegetation. He remains on vancomycin. Acute Influenza B infection remains on Tamiflu History of IV drug abuse, last using 4 years ago, on Suboxone Recent treatment for left wrist cellulitis, at outside facility 01/06/2024, received incision and drainage and course of Keflex which was completed outpatient History of MRSA skin/nose infection Recent history of incarceration History of hepatitis C Plan: The patient was seen and evaluated Chest x-ray, microbiology, labs and medications reviewed Bronchial wash cultures showing MRSA Continue vancomycin Continue Tamiflu Continue fluid resuscitation Stable and on room air We will continue to follow I have personally seen and examined the patient, performed the documentation and the assessment and plan as written. Number of minutes spent on the visit: 10.
[2024-02-17] MEDS: ACETAMINOPHEN TAB 325 MG TAB PO PRN (21:20)
--- NOTE | 2024-02-18 02:00 | PN ---
PROGRESS NOTE DATE OF SERVICE: 02/17/2024 CHIEF COMPLAINT: Pneumonitis. HISTORY OF PRESENT ILLNESS: This gentleman is doing much better. His respirations have improved since he had his microscopy. PHYSICAL EXAMINATION: CHEST: Much more clear. There are still occasional rales and some rhonchi and he is coughing up purulent sputum, but he is much improved. CARDIAC: Normal. IMPRESSION: Improving bacterial pneumonitis and influenza. PLAN: Continue with current program and probably home in the next day or 2. MMODL / IJN: [id number] /
--- NOTE | 2024-02-18 03:38 | PN ---
PROGRESS NOTE DATE OF SERVICE: 02/14/2024 CHIEF COMPLAINT: Pneumonitis. HISTORY OF PRESENT ILLNESS: This gentleman is still very congested, short of breath and coughing up copious amounts of blood-tinged prerenal sputum. PHYSICAL EXAMINATION: GENERAL: He is very short of breath. CHEST: Breath sounds are poor throughout with rales, rhonchi, and a productive cough. CARDIAC: Normal. ABDOMEN: Soft, nontender. IMPRESSION: Bacterial bronchopneumonia. PLAN: Continue with current management and add updrafts. MMODL / IJN: [id number] /
--- NOTE | 2024-02-18 04:47 | PN ---
PROGRESS NOTE DATE OF SERVICE: 02/15/2024 CHIEF COMPLAINT: Bacterial pneumonia and influenza. HISTORY OF PRESENT ILLNESS: This gentleman is still very congested and short of breath. He is coughing up copious amounts of purulent sputum. PHYSICAL EXAMINATION: He is quite dyspneic even with nasal O2. He has rales and rhonchi extensively in both lung holcomb anteriorly and posteriorly. Cardiac exam is normal. IMPRESSION: 1. Bacterial bronchial pneumonia. 2. Influenza. PLAN: Continue with current program. He is being followed by Pulmonology. MMODL / IJN: [id number] /
--- NOTE | 2024-02-18 06:32 | PN ---
PROGRESS NOTE DATE OF SERVICE: 02/16/2024 CHIEF COMPLAINT: Bacterial pneumonia. HISTORY OF PRESENT ILLNESS: This gentleman was taken to the operating room for bronchoscopy. PHYSICAL EXAMINATION: CHEST: Has improved. There are few rhonchi. CARDIAC: Normal. IMPRESSION: Bacterial pneumonia with influenza. PLAN: Continue with management following his bronchoscopy and pulmonary toilet. MMODL / IJN: [id number] /
[2024-02-18 08:03] VITALS: RESP 20
[2024-02-18 14:27] VITALS: BP 130/72; PULSE 80; TEMP 98.6
--- NOTE | 2024-02-18 19:13 | P.PN ---
Subjective Progress Note Date: 02/18/24 Patient is a 33-year-old white male with past medical history significant for IV drug abuse, previous MRSA infection, recent incarceration, hepatitis C. Patient was recently let out of senior care May,. 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 He was recently treated at [facility] in the emergency room January 06 for cellulitis of his left wrist. He had an I&D and was given a course of Keflex which he completed outpatient. He also has significant history of MRSA infections of his nose, which he developed in senior care. He has history of IV drug abuse, last using heroin approximately 4 years ago. He is on Suboxone. He presented to our emergency room yesterday morning complaining of 2 weeks of shortness of breath, coughing with purulent sputum, chest congestion, and fevers. Also admits some lateral "rib pain" that he attributes to coughing. Reproducible. He has some right-sided neck pain as well. He was treated at a local urgent care clinic over the weekend and apparently diagnosed with bronchitis. He was treated with a combination of azithromycin and prednisone, however, he did not get any better, so he came to the emergency room. On arrival, he was positive for influenza B. Chest x-ray showed patchy perihilar infiltrates with pulmonary multiple nodules. A follow-up chest CTA was done which did not show any pulmonary embolism. It did show multiple nodular and masslike opacities with areas of cavitation. These are suspicious for septic emboli, pulmonary abscess, and/or necrotic pneumonia. Given the patient's past history we will have to rule out endocarditis. Blood cultures are pending. Echocardiogram pending. Will a dd vancomycin to the patient's empiric coverage. Patient was also started on Tamiflu 5-day course twice daily. CBC done on arrival: WBC count of 13.2, hemoglobin 14.5, hematocrit 42.4, platelets 193. Procalcitonin elevated at 0.28. BMP on arrival: Sodium 131, potassium 4, chloride 97, serum bicarb 26, BUN 8, creatinine 0.51, glucose 99. Lactic acid level 1.1. LFTs mildly elevated. Patient is currently sitting up at the edge of the bed. He is on room air. He does become mildly dyspneic with exertion. He has a congested cough and a copious amount of brown/bloody sputum in his bedside tray. Currently afebrile, however, did report a fever as high as 101 F at home. Overall, patient's vital signs are stable. The patient is seen today February 15, 2024 in follow-up regular medical floor. He is currently resting in bed. Awake and alert in no acute distress. Maintaining O2 saturations in the 90s on room air. He is feeling a bit better today compared to yesterday. He is still weak and with a soft voice. He did undergo bronchoscopy with BAL and there was significant amount of retained secretions some of which was adhered to the trachea wall. Cultures are pending. Echocardiogram revealed no evidence of vegetation on the heart valves. Creatinine 0.48. He is continued on ceftriaxone and vancomycin. Remains on Tamiflu for his influenza B infection. Normal saline at 75 MLS per hour. The patient is seen today February 16, 2024 in follow-up on the regular medical floor. He is currently resting comfortably in bed. Awake and alert in no acute distress. Continues to maintain good O2 saturations in the 90s on room air. He has been afebrile. Hemodynamically stable. Sputum culture is showing presumptive Staph aureus. Nasal swab is showing MRSA. Bronchial wash cultures are pending. Blood cultures are pending. Creatinine 0.58. GFR greater than 90. He is continued on ceftriaxone, vancomycin. Remains on Tamiflu. Continued on bronchodilators and Mucinex. Normal saline at 75 MLS per hour. The patient is seen today February 17, 2024 in follow-up on the regular medical floor. He is awake and alert in no acute distress. Sitting up at the bedside. Denies any worsening shortness of breath, cough or congestion. His cough is less congested. Maintaining good O2 saturations in the 90s on room air. He has normal saline at 75 MLS per hour. Follow-up chest x-ray continues to show stable perihilar and basilar infiltrates. Bronchial wash cultures revealing MRSA and Macy albicans. Creatinine 0.55. GFR greater than 90. Vancomycin trough 15.2. He remains on bronchodilators and Mucinex. Continued on Tamiflu. Continued on vancomycin. On today's evaluation of 02/18/2024, the patient continues to cough up some yellowish sputum. The patient remains on vancomycin. The patient insist on going home. Based on that, I made recommendations for this patient to be seen by infectious disease regarding antibiotic management. The patient has staphylococcal pneumonia with secondary cavitation. He also had influenza B at the time of admission. The blood cultures been negative. Echocardiogram showed no evidence of any vegetation. The bronchoscopy and the bronchial lavage yielded MRSA. The sputum sample also yielded MRSA. The patient is currently on room air oxygen with a pulse ox of 98%. He is hemodynamically stable. No hemoptysis at this point in time. Objective - Vital Signs Vital signs: Vital Signs Temp 98.3 F 02/18/24 07:46 Pulse 79 02/18/24 07:46 Resp 20 02/18/24 07:46 BP 138/79 02/18/24 07:46 Pulse Ox 97 02/18/24 07:46 FiO2 Intake & Output 02/17/24 02/18/24 02/18/24 18:59 06:59 18:59 Other: Voiding Method Toilet Toilet Toilet Urinal # Voids 2 1 - Exam GENERAL EXAM: Alert, pleasant 33-year-old male, on room air, comfortable in no apparent distress. HEAD: Normocephalic. EYES: Normal reaction of pupils, equal size. NOSE: Clear with pink turbinates. THROAT: No erythema or exudates. NECK: No masses, no JVD. CHEST: No chest wall deformity. LUNGS: Equal air entry with bilateral scattered rhonchi. CVS: S1 and S2 normal with no audible murmur, regular rhythm. ABDOMEN: No hepatosplenomegaly, normal bowel sounds, no guarding or rigidity. SPINE: No scoliosis or deformity SKIN: Erythema on the left wrist. CENTRAL NERVOUS SYSTEM: No focal deficits, tone is normal in all 4 extremities. EXTREMITIES: There is no peripheral edema. No clubbing, no cyanosis. Peripheral pulses are intact. - Labs CBC & Chem 7: 02/13/24 10:46 02/17/24 05:54 Labs: Microbiology - Last 24 Hours (Table) 02/13/24 22:40 Legionella Culture - Preliminary Sputum 02/14/24 13:45 Gram Stain - Final Bronchial Washings - Random Bronchial Washings Culture - Final Methicillin resist S. aureus Macy albicans 02/14/24 13:40 Gram Stain - Final Bronchoalviolar Lavage - Right Bronchial Washings Culture - Final Methicillin resist S. aureus Macy albicans Assessment and Plan Plan: Cavitating community-acquired pneumonia, rule out septic emboli. The blood culture was negative and the echocardiogram showed no evidence of any valvular vegetation. Nevertheless this was a routine transthoracic echocardiogram. Chest CTA shows multiple nodular and masslike areas of consolidation bilaterally with central lucency. Correlate for septic emboli, pulmonary abscesses, and/or necrotic pneumonia. Echocardiogram revealed no evidence of endocarditis. Br onchoscopy with BAL performed 02/14/2024. There was a significant amount of purulent secretions as well as secretions adhered to the tracheal wall. Sputum culture showing presumptive MRSA. Nasal swab showing MRSA. Bronchial wash cultures revealed MRSA. Blood cultures are no growth. Cardiogram revealed no vegetation. He remains on vancomycin. Acute Influenza B infection completed the course of Tamiflu History of IV drug abuse, last using 4 years ago, on Suboxone Recent treatment for left wrist cellulitis, at outside facility 01/06/2024, received incision and drainage and course of Keflex which was completed outpatient History of MRSA skin/nose infection Recent history of incarceration History of hepatitis C Plan: Continue vancomycin Will consult with infectious disease regarding the course of outpatient antibiotic treatment. This may be either in the form of IV vancomycin versus oral Zyvox. Hemodynamically stable Stable and on room air We will continue to follow
--- NOTE | 2024-02-18 20:21 | PN ---
PROGRESS NOTE DATE OF SERVICE: 02/18/2024 CHIEF COMPLAINT: Acute MRSA pneumonitis. HISTORY OF PRESENT ILLNESS: This gentleman continues to improve. He is coughing up with sputum and he is less short of breath. PHYSICAL EXAMINATION: CHEST: He still has occasional rales and rhonchi, but his chest is much more clear. CARDIAC: Normal. ABDOMEN: Soft, nontender. IMPRESSION: Methicillin-resistant Staphylococcus aureus, pneumonitis. PLAN: Continue with current treatment, but he will probably be able to go home in the next few days. MMODL / IJN: [id number] /
[2024-02-19] MEDS ORDERED: VANCOMYCIN TROUGH DUE 1 EACH MISC MISCELLANE ONE (06:00)
--- NOTE | 2024-02-22 12:52 | P.CONS ---
History of Present Illness - Reason for Consult Consult date: 02/18/24 Staph pneumonia Requesting physician: Carter Way - Chief Complaint Shortness of breath cough and congestion x few days - History of Present Illness Patient is a 33-year-old male with a past medical history significant for hepatitis C IV drug use patient presenting to the hospital about 5 days ago for evaluation of increasing shortness of breath cough and congestion symptom has been going on for about a week apparently was evaluated in urgent care prior to coming to the hospital and has been treated with the steroids and azithromycin without any improvement patient has been complaining of increasing shortness of breath on presentation the hospital last have a cough moderate intensity and bringing up some sputum, the patient denies having any hemoptysis or pleuritic chest pain patient has been afebrile during this hospital stay not tachycardic hypotensive or hypoxic patient on presentation to the hospital her white count 13.2 no CBC has been done since then he did have a creatinine 0.55 CRP of 14.1 Pro-Deon 0.28 patient did have blood culture which has been negative sputum grew MRSA patient also have a bronchoscopy by pulmonary with a bronchial washing growing MRSA patient did have a chest x-ray on admission patchy perihilar infiltrate compatible with pneumonia CT angiogram of the chest masslike areas of consolidation bilaterally some of it has demonstrated central lucency correlate for septic emboli though his blood culture has been negative patient has been treated with the vancomycin infectious disease was consulted this afternoon for further management of antibiotic therapy, on my arrival to the patient room patient is up in the room and has been upset as he wants to go home patient mention he is feeling much better patient denies having any chest pain cough is significant decreased intensity no nausea no vomiting no abdominal pain or diarrhea Review of Systems Positive point and negatives has been mentioned in the HPI, complete review of systems was performed and all other systems are negative Past Medical History Past Medical History: No Reported History Additional Past Medical History / Comment(s): HEPATITIS C History of Any Multi-Drug Resistant Organisms: None Reported Year Discovered:: 2021 MDRO Source:: nose Past Surgical History: No Surgical Hx Reported Past Anesthesia/Blood Transfusion Reactions: No Reported Reaction Past Psychological History: No Psychological Hx Reported Past Alcohol Use History: None Reported Past Drug Use History: Heroin Medications and Allergies Home Medications Medication Instructions Recorded Confirmed Type Ibuprofen [Motrin] 600 mg PO Q8HR PRN 02/13/24 02/13/24 History Buprenorphine/Naloxone 8Mg/2Mg 0.0625 film SUBLINGUAL DAILY 02/18/24 Rx Linezolid [Zyvox] 600 mg PO Q12H #20 tab 02/18/24 Rx Allergies Allergy/AdvReac Type Severity Reaction Status Date / Time HONEY MUSTARD Allergy Swelling Uncoded 02/13/24 11:27 Physical Exam Vitals: Vital Signs Temp Pulse Resp BP BP Pulse Ox 02/18/24 13:44 98.6 F 80 20 130/72 98 02/18/24 07:46 98.3 F 79 20 138/79 97 02/18/24 01:24 98.6 F 75 16 131/74 96 02/17/24 17:56 98.5 F 71 16 147/85 98 Intake and Output 02/17/24 02/18/24 02/18/24 22:59 06:59 14:59 Other: Voiding Method Toilet Toilet Urinal # Voids 2 1 GENERAL DESCRIPTION: Middle-aged male lying in bed, no distress. No tachypnea or accessory muscle of respiration use. HEENT: Shows Pallor , no scleral icterus. Oral mucous membrane is dry. No phary ngeal erythema or thrush NECK: Trachea central, no thyromegaly. LUNGS: Unlabored breathing. Decreased intensity breath sounds no wheeze HEART: S1, S2, regular rate and rhythm. No loud murmur ABDOMEN: Soft, no tenderness , guarding or rigidity, no organomegaly EXTREMITIES: No edema of feet. SKIN: No rash, no masses palpable. NEUROLOGICAL: The patient is awake, alert, oriented x3, mood and affect normal. Results CBC & Chem 7: 02/13/24 10:46 02/17/24 05:54 Labs: Microbiology - Last 24 Hours (Table) 02/13/24 22:40 Legionella Culture - Preliminary Sputum Assessment and Plan (1) MRSA pneumonia Status: Acute Code(s): J15.212 - PNEUMONIA DUE TO METHICILLIN RESISTANT STAPHYLOCOCCUS AUREUS SNOMED Code(s): 303354515674473 Plan: 1patient presented to hospital with increased shortness of breath and cough in this patient who did have evidence of pneumonia patient is s/p bronchoscopy with cultures growing MRSA sputum also growing MRSA blood culture has been negative patient mention feeling better and the patient has been insisting on going home and does not want to wait any further in that situation I would not be able to arrange for any IV antibiotics for the patient and keeping in mind his history of drug use may not be an ideal candidate for outpatient IV antibiotic therapy 2-we will suggest a 10-day course of Zyvox 7 mg twice a day prescription sent to the pharmacy patient has been advised not to take his bupropion/naloxone with the patient mention has already cut back significantly and cannot do without it 3advise if any worsening symptoms to let me know right away or may need to come back to the hospital Thank you for this consultation Time with Patient: Greater than 30
--- NOTE | 2024-02-24 19:54 | DS ---
DISCHARGE SUMMARY CHIEF COMPLAINT: Shortness of breath and pneumonitis. HISTORY OF PRESENT ILLNESS AND PHYSICAL EXAMINATION: Details of this man's history and physical can be found in the initial workup. LABORATORY STUDIES: While he was in the hospital, he had laboratory studies, details of which can be found in the laboratory section of his chart. COURSE IN THE HOSPITAL: After admission, he was placed on bedrest, started on intravenous fluids and became quite ill. He became febrile and he did grow out MRSA. He was started on IV antibiotics and updrafts and followed by Pulmonology and Infectious Disease. He went for bronchoscopy for pulmonary toilet and improved quite a bit after that. He was able to be discharged on the and will be followed up in the office in a few days. FINAL DIAGNOSES: 1. Respiratory failure. 2. Methicillin-resistant Staphylococcus aureus pneumonitis. OPERATIONS: Bronchoscopy. CONSULTATIONS: Infectious Disease and Pulmonology. MMODL / IJN: [id number] /
--- NOTE | 2024-04-01 12:15 | MISC ---
MISCELLANOUS REPORT No additional diagnosis, not clinically significant. MMODL / IJN: [id number] /
== END 2024-02-18 18:57 | disposition home or self-care (01) | DRG 139 ==
LOC: SUPCPDRO 09:58 → EC 09:58 → 6NMEDSUR 13:46 → OBSVTOIN 14:33 → 4SSUR 14:40
PROVIDERS: ADMIT Family Medicine; ATTEND Family Medicine
PROC: 0B9D8ZX Drainage of Right Middle Lung Lobe, Via Natural or Artificial Opening Endoscopic, Diagnostic (ICD-10-PCS; 2024-02-14)
PROC: 0B9H8ZX Drainage of Lung Lingula, Via Natural or Artificial Opening Endoscopic, Diagnostic (ICD-10-PCS; principal; 2024-02-14 07:30)
DX: J10.08 Influenza due to other identified influenza virus with other specified pneumonia (principal); J15.212 Pneumonia due to Methicillin resistant Staphylococcus aureus; F19.10 Other psychoactive substance abuse, uncomplicated; B19.20 Unspecified viral hepatitis C without hepatic coma; Z86.14 Personal history of Methicillin resistant Staphylococcus aureus infection; I08.2 Rheumatic disorders of both aortic and tricuspid valves
CPT/HCPCS: 31624; 36415; 71045; 71046; 71275; 80053; 80202; 82565; 83605; 84145; 84484; 85025; 85379; 85610; 85730; 86140; 87040; 87070; 87077; 87102; 87116; 87186; 87205; 87206; 87449; 87496; 87498; 87502; 87529; 87634; 87635; 87636; 87798; 88108; 88305; 89050; 93005; 93306; 94640; 94664; 94760; 96361; 96365; 96366; 96367; 99285; 99406

== ENCOUNTER 2024-09-02 12:17 | Emergency (ER) | payer BC, OTHER ==
--- NOTE | 2024-09-02 13:56 | XR ---
EXAMINATION TYPE: XR chest 2V DATE OF EXAM: 09/02/2024 COMPARISON: 02/17/2024 HISTORY: 33-year-old male cough and congestion, possible pneumonia TECHNIQUE: PA and lateral views FINDINGS: Heart normal size. Aorta and pulmonary vasculature within normal limits. There is patchy airspace opa city in the left lung. Not quite as extensive as the bilateral pneumonia seen on 02/17/2024. No pleural effusion. IMPRESSION: Left midlung pneumonia. [facility], , 09/02/2024 1:54 PM
--- NOTE | 2024-09-02 13:59 | ED ---
URI HPI - General Chief Complaint: Upper Respiratory Infection Stated Complaint: Possible pneumonia Time Seen by Provider: 09/02/24 12:31 Source: patient, RN notes reviewed Mode of arrival: ambulatory Limitations: no limitations - History of Present Illness Initial Comments: This is a 33-year-old male with complaining of congestion and cough with yellow sputum x 2 days. Patient states cough is worse in the morning. Patient endorses history of significant infections, including MRSA associated pneumonia 5 months ago. Patient endorses concern for pneumonia today due to frequent severity of infections in the past. Patient denies fever, chills, fatigue, body aches, chest pain, dyspnea, abdominal pain, N/V/D, hemoptysis. MD Complaint: cough, rhinorrhea, nasal congestion Onset/Timin -: days(s) - Related Data Home Medications Medication Instructions Recorded Confirmed Ibuprofen [Motrin] 600 mg PO Q8HR PRN 02/13/24 02/13/24 Previous Rx's Medication Instructions Recorded Buprenorphine/Naloxone 8Mg/2Mg 0.0625 film SUBLINGUAL DAILY 02/18/24 Linezolid [Zyvox] 600 mg PO Q12H #20 tab 02/18/24 Azithromycin [Zithromax Z Pack] 0 tab PO DIRECTED #6 tab 09/02/24 Linezolid [Zyvox] 600 mg PO Q12H #20 tab 09/02/24 Allergies Allergy/AdvReac Type Severity Reaction Status Date / Time HONEY MUSTARD Allergy Swelling Uncoded 09/02/24 12:39 Review of Systems ROS Statement: Those systems with pertinent positive or pertinent negative responses have been documented in the HPI. ROS Other: All systems not noted in ROS Statement are negative. Past Medical History Past Medical History: No Reported History Additional Past Medical History / Comment(s): HEPATITIS C History of Any Multi-Drug Resistant Organisms: MRSA Date of last positivie culture/infection: 02/13/24 MDRO Source:: SPUTUM Past Surgical History: No Surgical Hx Reported Past Anesthesia/Blood Transfusion Reactions: No Reported Reaction Past Psychological History: No Psychological Hx Reported Smoking Status: Current every day smoker Past Alcohol Use History: None Reported Past Drug Use History: Heroin General Exam Limitations: no limitations General appearance: alert, in no apparent distress Head exam: Present: atraumatic, normocephalic, normal inspection Eye exam: Present: normal appearance, PERRL, EOMI. Absent: scleral icterus, conjunctival injection, periorbital swelling ENT exam: Present: normal exam, mucous membranes moist Neck exam: Present: normal inspection. Absent: tenderness, meningismus, lymphadenopathy Respiratory exam: Present: decreased breath sounds (Slightly diminished lung sounds in all holcomb.). Absent: respiratory distress, wheezes, rales, rhonchi, stridor Cardiovascular Exam: Present: regular rate, normal rhythm, normal heart sounds. Absent: systolic murmur, diastolic murmur, rubs, gallop, clicks GI/Abdominal exam: Present: soft, normal bowel sounds. Absent: distended, tenderness, guarding, rebound, rigid Extremities exam: Present: normal inspection, full ROM, normal capillary refill. Absent: tenderness, pedal edema, joint swelling, calf tenderness Back exam: Present: normal inspection Neurological exam: Present: alert, oriented X3, CN II-XII intact Psychiatric exam: Present: normal affect, normal mood Skin exam: Present: warm, dry, intact, normal color. Absent: rash Course Vital Signs 09/02/24 09/02/24 09/02/24 12:37 17:23 19:06 Temperature 98.8 F 97.9 F 98.2 F Pulse Rate 111 H 108 H 95 Respiratory 20 18 18 Rate Blood Pressure 113/81 100/60 122/74 O2 Sat by Pulse 96 100 99 Oximetry Medical Decision Making - Medical Decision Making Was pt. sent in by a medical professional or institution (JAMI Chavarria, DOT ETCHER APPRENTICE, urgent care, hospital, or alf...) When possible be specific @ -[No] Did you speak to anyone other than the patient for history (EMS, parent, family, police, friend...)? What history was obtained from this source @ -[No] Did you review nursing and triage notes (agree or disagree)? Why? @ -[I reviewed and agree with nursing and triage notes] Were old charts reviewed (outside hosp., previous admission, EMS record, old EKG, old radiological studies, urgent care reports/EKG's, alf records)? Report findings @ -[No old charts were reviewed] Differential Diagnosis (chest pain, altered mental status, abdominal pain women, abdominal pain men, vaginal bleeding, weakness, fever, dyspnea, syncope, headache, dizziness, GI bleed, back pain, seizure, CVA, palpatations, mental h ealth, musculoskeletal)? @ -Differential Dyspnea: Coronary syndrome, arrhythmia, tamponade, asthma, COPD, pulmonary embolism, pneumonia, pneumothorax, pulmonary effusion, anaphylaxis, diabetic ketoacidosis, flailed chest, pulmonary contusion, diaphragmatic rupture, anemia, neuromuscular, this is not meant to be an all-inclusive list. EKG interpreted by me (3pts min.). @ -Not done X-rays interpreted by me (1pt min.). @ -Chest x-ray reveals consolidation in left middle lobe. Prior x-rays show similar consolidation in past with associated MRSA infection CT interpreted by me (1pt min.). @ -[None done] U/S interpreted by me (1pt. min.). @ -[None done] What testing was considered but not performed or refused? (CT, X-rays, U/S, labs)? Why? @ -[None] What meds were considered but not given or refused? Why? @ -[None] Did you discuss the management of the patient with other professionals (prof essionals i.e. , PA, [employer] ETCHER APPRENTICE, lab, RT, psych nurse, social media marketing specialist, ribbon sweatband operator, teacher, workplace rehabilitation officer, field case manager)? Give summary @ -Yes spoke to Dr. Key who advised patient be admitted due to history of MRSA pneumonia. Advised if patient refused admission to seek AMA signature and advised outpatient follow-up with Dr. Key as soon as possible Was smoking cessation discussed for >3mins.? @ -[No] Was critical care preformed (if so, how long)? @ -[No] Were there social determinants of health that impacted care today? How? (Homelessness, low income, unemployed, alcoholism, drug addiction, tra nsportation, low edu. Level, literacy, decrease access to med. care, long term, rehab)? @ -Yes, patient states he has 2 young children to care for and has difficulty finding care for them if he is admitted. Was there de-escalation of care discussed even if they declined (Discuss DNR or withdrawal of care, Hospice)? DNR status @ -[No] What co-morbidities impacted this encounter? (DM, HTN, Smoking, COPD, CAD, Cancer, CVA, ARF, Chemo, Hep., AIDS, mental health diagnosis, sleep apnea, morbid obesity)? @ -[None] Was patient admitted / discharged? Hospital course, mention meds given and route, prescriptions, significant lab abnormalities, going to OR and other pertinent info. @ -Patient left AGAINST MEDICAL ADVICE. Chest x-ray revealed left mid lobe pneumonia and due to history of MRSA pneumonia unable to exclude this as diagnosis. Rocephin 2 g IM given azithromycin and linezolid sent to the phar cira spoke to Dr. Key by phone who advised patient be admitted although patient originally declined admission. Patient later changed his mind stating he would like to be admitted. Attempted to recontact Dr. Key without success. Patient states that due to wait that he would prefer to follow-up with Dr. Key the outpatient. Undiagnosed new problem with uncertain prognosis? @ -[No] Drug Therapy requiring intensive monitoring for toxicity (Heparin, Nitro, Insulin, Cardizem)? @ -[No] Were any procedures done? @ -[No] Diagnosis/symptom? @ -Acute pneumonia, with history of MRSA associated pneumonia Acute, or Chronic, or Acute on Chronic? @ -Acute Uncomplicated (without systemic symptoms) or Complicated (systemic symptoms)? @ -Uncomplicated Side effects of treatment? @ -[No] Exacerbation, Progression, or Severe Exacerbation? @ -[No] Poses a threat to life or bodily function? How? (Chest pain, USA, CT, pneumonia, PE, COPD, DKA, ARF, appy, cholecystitis, CVA, Diverticulitis, Homicidal, Suicidal, threat to staff... and all critical care pts) @ -Yes possible MRSA pneumonia. - Lab Data Result diagrams: 09/02/24 15:17 09/02/24 15:17 Lab Results 09/02/24 09/02/24 09/02/24 Range/Units 12:40 15:17 15:17 WBC 7.4 (3.8-10.6) k/uL RBC 4.91 (4.30-5.90) m/uL Hgb 14.9 (13.0-17.5) gm/dL Hct 42.3 (39.0-53.0) % MCV 86.2 (80.0-100.0) fL MCH 30.4 (25.0-35.0) pg MCHC 35.2 (31.0-37.0) g/dL RDW 12.1 (11.5-15.5) % Plt Count 176 (150-450) k/uL MPV 9.6 Neutrophils % 73 % Lymphocytes % 16 % Monocytes % 8 % Eosinophils % 2 % Basophils % 0 % Neutrophils # 5.4 (1.3-7.7) k/uL Lymphocytes # 1.2 (1.0-4.8) k/uL Monocytes # 0.6 (0-1.0) k/uL Eosinophils # 0.1 (0-0.7) k/uL Basophils # 0.0 (0-0.2) k/uL Sodium 139 (137-145) mmol/L Potassium 4.7 (3.5-5.1) mmol/L Chloride 102 (98-107) mmol/L Carbon Dioxide 33 H (22-30) mmol/L Anion Gap 4 mmol/L BUN 8 L (9-20) mg/dL Creatinine 0.67 (0.66-1.25) mg/dL Est GFR (CKD-EPI)AfAm >90 (>60 ml/min/1.73 sqM) Est GFR (CKD-EPI)NonAf >90 (>60 ml/min/1.73 sqM) Glucose 92 (74-99) mg/dL Calcium 9.5 (8.4-10.2) mg/dL Total Bilirubin 0.5 (0.2-1.3) mg/dL AST 25 (17-59) U/L ALT 19 (4-49) U/L Alkaline Phosphatase 50 (38-126) U/L Total Protein 6.9 (6.3-8.2) g/dL Albumin 4.2 (3.5-5.0) g/dL Influenza Type A (PCR) Not Detected (Not Detectd) Influenza Type B (PCR) Not Detected (Not Detectd) RSV (PCR) Not Detected (Not Detectd) SARS-CoV-2 (PCR) Not Detected (Not Detectd) Disposition Clinical Impression: Pneumonia Disposition: LEFT AGAINST MEDICAL ADVICE Condition: Fair Instructions (If sedation given, give patient instructions): Upper Respiratory Infection (ED) Prescriptions: Azithromycin [Zithromax Z Pack] 0 tab PO DIRECTED #6 tab Linezolid [Zyvox] 600 mg PO Q12H #20 tab Is patient prescribed a controlled substance at d/c from ED?: No Referrals: [place] Ariel,Kole G, MD [Primary Care Provider] - 1-2 days Time of Disposition: 18:43
[2024-09-02] MEDS: cefTRIAXone 1,000 MG VIAL (IM USE) IM STA (14:33)
[2024-09-02 15:41] LABS: Basophils % (A) 0 %; Eosinophils # (A) 0.1 k/uL (0-0.7); Eosinophils % (A) 2 %; HCT 42.3 % (39.0-53.0); HGB 14.9 gm/dL (13.0-17.5); Lymphocytes # (A) 1.2 k/uL (1.0-4.8); Lymphocytes % (A) 16 %; MCH 30.4 pg (25.0-35.0); MCHC 35.2 g/dL (31.0-37.0); MCV 86.2 fL (80.0-100.0); Mean Platelet Volume 9.6; Monocytes # (A) 0.6 k/uL (0-1.0); Monocytes % (A) 8 %; Neutrophils # (A) 5.4 k/uL (1.3-7.7); Neutrophils % (A) 73 %; Platelet Count 176 k/uL (150-450); RBC 4.91 m/uL (4.30-5.90); RDW 12.1 % (11.5-15.5); WBC 7.4 k/uL (3.8-10.6)
[2024-09-02 15:52] LABS: ALT 19 U/L (4-49); AST 25 U/L (17-59); African American GFR (CKD) >90 (>60 ml/min/1.73 sqM); Albumin 4.2 g/dL (3.5-5.0); Alkaline Phosphatase 50 U/L (38-126); Anion Gap 4 mmol/L; Blood Urea Nitrogen 8 mg/dL (9-20); Calcium 9.5 mg/dL (8.4-10.2); Carbon Dioxide 33 mmol/L (22-30); Chloride 102 mmol/L (98-107); Glucose 92 mg/dL (74-99); Non-African American GFR(CKD) >90 (>60 ml/min/1.73 sqM); Potassium 4.7 mmol/L (3.5-5.1); Sodium 139 mmol/L (137-145); Total Bilirubin 0.5 mg/dL (0.2-1.3); Total Protein 6.9 g/dL (6.3-8.2)
[2024-09-02 17:24] VITALS: RESP 18
[2024-09-02 19:10] VITALS: BP 122/74; PULSE 95; TEMP 98.2
== END 2024-09-02 19:08 | disposition other institution (70) ==
LOC: EC 12:17
CPT/HCPCS: 36415; 71046; 80053; 85025; 87636; 96372; 99283